=== PATIENT | male | born 1955 | race Caucasian/White ===

== ENCOUNTER → 2016-05-02 | Outpatient (CLI) | payer BC ==
[2016-05-02 14:41] LABS: HEMATOCRIT 42.1 % (42-52); MEAN CELL VOLUME 92.9 fL (80-100); MEAN CORPUSCULAR HGB CONC 34.4 g/dl (32-36); PLATELET COUNT 173 K/uL (130-400); RED BLOOD COUNT 4.53 M/uL (4.7-6.1); WHITE BLOOD COUNT 4.54 K/uL (4.8-10.8)
[2016-05-02 14:58] LABS: ALT/SGPT 57 U/L (12-78); AST/SGOT 25 U/L (15-37); BLOOD UREA NITROGEN 14 mg/dl (7-18); BUN/CREATININE RATIO 13.6 (10-20); CALCIUM 8.9 mg/dl (8.5-10.1); CARBON DIOXIDE 28 mmol/L (21-32); CHLORIDE 107 mmol/L (98-107); CHOLESTEROL 177 mg/dl (0-200); GLUCOSE 94 mg/dl (70-99); POTASSIUM 4.3 mmol/L (3.5-5.1); SODIUM 143 mmol/L (136-145)
[2016-05-02 15:00] LABS: ALB/GLOB RATIO 1.4 (0.9-2); ALKALINE PHOSPHATASE 69 U/L (45-117); CHOLESTEROL/HDL RATIO 2.4; HDL CHOLESTEROL 74 mg/dl; LDL CHOLESTEROL CALCULATED 88 mg/dl; TRIGLYCERIDES 75 mg/dl (0-150); VERY LOW DENSITY LIPOPROT CALC 15 mg/dl
[2016-05-02 15:04] LABS: ESTIMATED AVERAGE GLUCOSE 111 mg/dl; HA1C FLAG Normal (Normal)
== END | disposition home or self-care (01) ==
LOC: C.LAB1850 13:45
PROVIDERS: ATTEND Internal Medicine Interventional Cardiology
DX: E78.00 Pure hypercholesterolemia, unspecified (principal); I25.10 Atherosclerotic heart disease of native coronary artery without angina pectoris

== ENCOUNTER → 2017-05-24 | Outpatient (CLI) | payer BC ==
--- NOTE | 2017-05-24 11:18 | DIAGNOSTIC IMAGING REPORT ---
(TESTICULAR) SCROTUM-CONT HISTORY: Pain. Edema. N50.89 Swollen [id number] COMPARISON: None. FINDINGS: Right testis: Maximum dimension 5.8 cm. Normal vascular flow. Normal epididymis. Left testis: Maximum dimension 4.5 cm. Large hydrocele. Normal vascular flow to the left testis. Normal epididymis. IMPRESSION: 1. Normal testes bilaterally. 2. Large left hydrocele. The above report was generated using voice recognition software. It may contain grammatical, syntax or spelling errors. Electronically signed by: Agustin Vizcarra M.D. 05/24/2017 11:17 AM Dictated Date/Time: 05/24/2017 11:16 AM
== END | disposition home or self-care (01) ==
LOC: C.ULTR 10:21
PROVIDERS: ATTEND Physician Assistant
DX: N50.89 Other specified disorders of the male genital organs (principal); N43.3 Hydrocele, unspecified

== ENCOUNTER → 2017-06-19 | Outpatient (CLI) | payer BC ==
[2017-06-19 15:48] LABS: HEMATOCRIT 42.8 % (42-52); HEMOGLOBIN 15.3 g/dL (14.0-18.0); MEAN CELL VOLUME 92.2 fL (80-100); MEAN CORPUSCULAR HGB CONC 35.7 g/dl (32-36); PLATELET COUNT 171 K/uL (130-400); RED CELL DISTRIBUTION WIDTH CV 13.5 % (11.5-14.5); RED CELL DISTRIBUTION WIDTH SD 45.4 fL (36.4-46.3); WHITE BLOOD COUNT 5.54 K/uL (4.8-10.8)
[2017-06-19 16:09] LABS: ALBUMIN 3.8 gm/dl (3.4-5.0); ALT/SGPT 37 U/L (12-78); BLOOD UREA NITROGEN 12 mg/dl (7-18); CALCIUM 8.9 mg/dl (8.5-10.1); CARBON DIOXIDE 29 mmol/L (21-32); CHOLESTEROL 224 mg/dl (0-200); CREATININE 1.14 mg/dl (0.60-1.40); GLUCOSE 95 mg/dl (70-99); POTASSIUM 4.5 mmol/L (3.5-5.1); SODIUM 139 mmol/L (136-145)
[2017-06-19 16:31] LABS: ALKALINE PHOSPHATASE 69 U/L (45-117); AST/SGOT 19 U/L (15-37); LDL CHOLESTEROL CALCULATED 150 mg/dl; TOTAL PROTEIN 6.7 gm/dl (6.4-8.2)
== END | disposition home or self-care (01) ==
LOC: C.LAB1850 14:56
PROVIDERS: ATTEND Internal Medicine Interventional Cardiology
DX: E78.00 Pure hypercholesterolemia, unspecified (principal); I25.10 Atherosclerotic heart disease of native coronary artery without angina pectoris; R53.83 Other fatigue; R63.5 Abnormal weight gain

== ENCOUNTER → 2017-06-20 | Outpatient (CLI) | payer BC ==
--- NOTE | 2017-06-20 16:56 | DIAGNOSTIC IMAGING REPORT ---
ABD/PELVIS NO IV OR ORAL CONT CLINICAL HISTORY: 61 years-old Male presenting with SWOLLEN SCROTUM. TECHNIQUE: Multidetector CT of the abdomen and pelvis was performed without the use of intravenous contrast. IV contrast: None. A dose lowering technique was used consistent with the principles of ALARA (as low as reasonably achievable). COMPARISON: None. CT DOSE (mGy.cm): The estimated cumulative dose is 922.96 mGycm. FINDINGS: [employer] topogram: Vasectomy clips noted. Partially visualized implanted cardiac defibrillator lead. Lung bases: Minimal basilar opacities, likely atelectasis. Normal heart size. No pericardial or pleural effusion. Liver: Normal morphology. Normal density. Few well-defined hypodensities, indeterminate but likely hepatic cysts or hamartomas. Biliary: No gross biliary ductal dilatation allowing for noncontrast technique. Normal gallbladder. Pancreas: Mild parenchymal atrophy. Spleen: Normal. Adrenal glands: Normal. Kidneys and ureters: 2.1 cm upper pole left renal lesion which is indeterminate by density. An additional well-defined hypodensity noted in the kidney indeterminate likely simple cyst. Subcentimeter hyperdensity at the lower pole the left kidney (series 3 image 161), indeterminate, likely hemorrhagic or proteinaceous cyst. Suspected simple cyst also noted in the right kidney. No nephrolithiasis. No hydronephrosis. Ureters normal. Bladder: Bladder circumferentially thick-walled allowing for underdistention. Pelvic organs: Prostate enlargement likely secondary to benign prostatic hyperplasia. Bowel: Mild colonic wall thickening suggested of the sigmoid colon and rectum. No pericolonic fat stranding. Few scattered diverticula noted throughout the colon primarily in the descending colon. The appendix is normal. No bowel obstruction. Peritoneal cavity: No free fluid or intraperitoneal gas. Lymph nodes: No gross lymphadenopathy allowing for noncontrast technique. Vasculature: Atherosclerosis of the normal caliber abdominal aorta. The Abdominal wall: Bilateral hydroceles or spermatoceles, greater on the left. Mastectomy clips noted. Musculoskeletal: Degenerative changes of the spine. IMPRESSION: 1. 2.1 cm upper pole left renal lesion is indeterminate and is concerning for a solid renal neoplasm though this could represent hemorrhagic or proteinaceous cyst. A dedicated contrast-enhanced CT or MR examination of the kidneys is recommended for definitive characterization on a nonurgent basis. 2. Bilateral hydroceles or spermatoceles, greater on the left. The presence of vasectomy clips favors a spermatocele on the left. 3. Mild wall thickening of the sigmoid colon and rectum without pericolonic fat infiltration. This could be due to underdistention, circular muscle hypertrophy, or mild chronic inflammation. 4. Chronic bladder outlet obstruction secondary to prostatomegaly. The report will be called/faxed according to standard departmental protocol. Electronically signed by: Fuad Levy M.D. 06/20/2017 4:55 PM Dictated Date/Time: 06/20/2017 4:44 PM
== END | disposition home or self-care (01) ==
LOC: C.CTS 15:26
PROVIDERS: ATTEND Urology
DX: N50.89 Other specified disorders of the male genital organs (principal); N28.9 Disorder of kidney and ureter, unspecified; N40.1 Benign prostatic hyperplasia with lower urinary tract symptoms

== ENCOUNTER → 2017-06-27 | Outpatient (CLI) | payer BC ==
[~2017-06-27] MED LIST: ASPI81TA28 PO; CIPR-255 PO; COEN1CAP17 PO; METR-163 PO; MISCCHW PO; MULTTAB58 PO; NITR0.4S UT; OMEG10007 PO; OXYC7.5T66 PO; PROP10TA7 PO; TAMS0.4C38 PO; VSK5 PO
== END | disposition home or self-care (01) ==
LOC: C.LAB1850 14:24
PROVIDERS: ATTEND Nurse Practitioner Adult Health
DX: Z20.2 Contact with and (suspected) exposure to infections with a predominantly sexual mode of transmission (principal)

== ENCOUNTER 2017-07-01 16:44 | Inpatient (IN) | payer BC ==
[~2017-07-01] VITALS: Ht 177.8 cm; Wt 79.9 kg
[2017-07-01] MEDS ORDERED: ONDANSETRON INJ 2 MG/ML 2 ML VIAL IV STA (20:16)
[2017-07-01] MEDS ORDERED: SODIUM CHLORIDE 0.9% 1000ML 1,000 ML IV STA (20:16)
[2017-07-01] MEDS ORDERED: MoRPHine SULFATE 10 MG/ML CARP/VIAL IV STA (20:16)
--- NOTE | 2017-07-01 20:17 | EMERGENCY ROOM VISIT NOTE ---
History Report prepared by Bryan: Bret Werner Under the Supervision of: Dr. Johan Banks M.D. First contact with patient: 20:05 Chief Complaint: TESTICULAR PAIN Stated Complaint: SWOLLEN TESTICLE, PAIN, CONSTIPATION, DARK URINE Nursing Triage Summary: Pt reports swollen testicle for several months, worsening recently. Last 2-3 days, urine has been dark. Pain in testicle and left flank. Pt was seen at urologist last week and placed on Cipro and Flagyl. History of Present Illness The patient is a 61 year old male who presents to the Emergency Room with complaints of worsening left testicular swelling that began 4 months ago with pain rated as 8/10. He states that for the past 2-3 days, his urine has been dark and that he has had increased difficulty urinating. He notes that he felt a twinge of pain in his prostate last night and also complains of left flank pain. Per family, the patient has had decreased appetite, blurry vision, ringing in his ears, and has been constipated. He states that he is uncircumcised and noted that he noticed his penis was shrinking about 4 months ago. 2 months ago he had an ultrasound which revealed a hydrocele on his left testicle. The patient was seen by Dr. Thompson who ordered a CT scan. He was referred to a PCP last week who placed him on Cipro and Flagyl. He has been taking Oxycodone to manage his pain. He denies fevers and SOB. Source of History: patient, family Onset: 4 months ago Position: other (groin) Symptom Intensity: pain rated as 8/10 Timing: worsening Modifying Factors (Relieving): narcotics Associated Symptoms: + urinary symptoms, No fevers, No SOB Note: Patient complains of left flank pain, blurry vision, ringing in his ears, and constipation. Review of Systems See HPI for pertinent positives & negatives. A total of 10 systems reviewed and were otherwise negative. Past Medical & Surgical Medical Problems: (1) Cellulitis, scrotum (2) Heart attack (3) Heart disease (4) Hydrocele in adult Surgical Problems: (1) Hx of vasectomy Family History FHx: cancer FHx: heart disease Social History Smoking Status: Current Every Day Smoker Alcohol Use: none Drug Use: none Marital Status: Occupation Status: unemployed Current/Historical Medications Scheduled Aspirin (Aspirin Ec), 81 MG PO DAILY Ciprofloxacin Hcl (Cipro), 500 MG PO Q12 Coenzyme Q10 (Ubidecarenone) (Co Q 10), 100 MG PO DAILY Fish Oil (Hornitos-3), 2,000 MG PO DAILY Metronidazole (Flagyl), 500 MG PO TID Multiple Vitamin (Multivitamin), 1 TAB PO DAILY Pindolol (Visken), 2.5 MG PO BID Probiotic Product (Acidophilus), 1 TAB PO DAILY Tamsulosin Hcl (Flomax), 0.4 MG PO DAILY Scheduled PRN Nitroglycerin (Nitrostat), 0.4 MG UT UD PRN for Chest Pain Oxycodone/Acetaminophen 7.5MG/325MG (Oxycodone/Acetaminophen 7.5MG/325MG), 1 TAB PO Q4H PRN for Pain Propranolol (Inderal), 10 MG PO UD PRN for Tachycardia Allergies Coded Allergies: Morphine (Verified Adverse Reaction, Intermediate, DELIRIUM, 07/01/17) Physical Exam Vital Signs Date Time Temp Pulse Resp B/P (MAP) Pulse Ox O2 Delivery O2 Flow Rate FiO2 07/02/17 01:05 98 20 94 Room Air 07/02/17 01:00 112/58 07/02/17 00:05 93 24 96 Room Air 07/02/17 00:02 89 07/02/17 00:00 136/86 07/01/17 23:10 93 22 95 Room Air 07/01/17 23:00 119/78 07/01/17 22:10 98 21 96 Room Air 07/01/17 22:05 92 19 130/74 97 Room Air 07/01/17 21:05 82 16 97 Room Air 07/01/17 21:00 104/66 07/01/17 20:44 82 07/01/17 20:32 122/80 Room Air 07/01/17 20:00 93 18 106/72 97 Room Air 07/01/17 16:47 36.8 88 16 104/43 96 Room Air Physical Exam GENERAL: Patient is well appearing and in no acute distress. EYES: No scleral icterus, unremarkable pupils. ENT: Mucous membranes moist, no nasal congestion. NECK: No masses appreciated, no meningismus, trachea is midline. RESPIRATORY: No dyspnea. Clear to auscultation and equal bilaterally. No wheeze , no rhonchi. CARDIOVASCULAR: Regular rate and rhythm. No murmurs, rubs, gallops appreciated. GASTROINTESTINAL: Vague left lower quadrant tenderness to palpation. Abdomen soft, no peritonitis. Bowel sounds positive. No masses appreciated. BACK: No midline tenderness, no CVA tenderness EXTREMITIES: Normal motion all extremities, no cyanosis, no edema. NEUROLOGIC: Alert and oriented, no acute motor or sensory deficits, no focal weakness, cranial nerves grossly intact. SKIN: No rash, no jaundice, no diaphoresis. PELVIS: Swollen, edematous, and very tender left scrotum. Mild erythema over base of scrotum but not extending to abdomen or perineum. Medical Decision & Procedures ER Provider Diagnostic Interpretation: Radiology results and stated below per my review and radiologist interpretation: CT SCAN OF THE ABDOMEN AND PELVIS WITH IV CONTRAST CLINICAL HISTORY: Constipation. Scrotal edema. Pain. COMPARISON STUDY: Abdominal CT dated 06/20/2017. TECHNIQUE: Following the IV administration of 119 cc of Optiray 320, CT scan of the abdomen and pelvis is performed from the lung bases to the proximal femora. Images are reviewed in the axial, sagittal, and coronal planes. IV contrast was administered without complication. A dose lowering technique was utilized adhering to the principles of ALARA. CT DOSE: 547.27 mGy.cm FINDINGS: Lung bases: The heart is normal in size and without pericardial effusion. Pacemaker leads are noted. The lung bases are clear noting bibasilar scarring/atelectasis. There is a small hiatal hernia. Liver: The contrast-enhanced liver is normal in size, contour, and attenuation. There is no intrahepatic biliary ductal dilatation. The hepatic veins and portal veins are patent. Scattered subcentimeter hepatic hypodensities likely represent tiny cysts but are too small for definitive characterization. Gallbladder: Unremarkable. Spleen: Normal in size and attenuation. Pancreas: Unremarkable. Adrenal glands: Unremarkable. Kidneys: The contrast enhanced kidneys are normal in size and without hydronephrosis. The kidneys enhance symmetrically. A 2.0 cm lesion arising from the upper pole of left kidney likely represents a minimally complex cyst. There is no abnormal enhancement when correlated with the 06/20/2017 unenhanced examination. Left renal cysts measure up to 2.8 cm. Additional subcentimeter cortical hypodensities are seen in both kidneys. These also likely represent cysts but are too small for definitive characterization. Abdominal vasculature: The abdominal aorta is normal in course and caliber noting moderate to advanced atherosclerotic calcification. Bowel: There is moderate to severe constipation. No bowel obstruction is identified. The appendix is well-visualized and normal. Peritoneum: There is no intraperitoneal free air or abdominal ascites. There is a small fat-containing umbilical hernia. Lymphadenopathy: None. Pelvic viscera: The bladder, prostate, and seminal vesicles are normal as visualized. Surgical clips are noted along the spermatic cord bilaterally. There are bilateral hydroceles, left larger than right. Scrotal edema is suggested. Skeletal structures: No lytic or blastic lesions are seen. IMPRESSION: 1. There are no acute infectious or inflammatory findings in the abdomen or pelvis. 2. Moderate to severe constipation. No bowel obstruction is identified. 3. There are bilateral hydroceles, left larger than right with overlying scrotal edema. These are similar in appearance to the 06/20/2017 examination. Clinical correlation will be required. Consider follow-up with urology. 4. A 2.0 cm exophytic lesion arising from the upper pole of the left kidney likely represents a minimally complex cyst. There is no abnormal enhancement identified when correlated with the prior unenhanced examination. A six-month precautionary renal ultrasound is recommended in follow-up. 5. Additional findings as above. Electronically signed by: Mukund Key M.D. 07/01/2017 10:10 PM Dictated Date/Time: 07/01/2017 10:00 PM Laboratory Results 07/01/17 20:30 Red Blood Count 4.57, Mean Corpuscular Volume 91.7, Mean Corpuscular Hemoglobin 32.8, Mean Corpuscular Hemoglobin Concent 35.8, Mean Platelet Volume 10.0, Neutrophils (%) (Auto) 64.1, Lymphocytes (%) (Auto) 20.8, Monocytes (%) (Auto) 13.0, Eosinophils (%) (Auto) 1.5, Basophils (%) (Auto) 0.3, Neutrophils # (Auto ) 5.68, Lymphocytes # (Auto) 1.84, Monocytes # (Auto) 1.15, Eosinophils # (Auto ) 0.13, Basophils # (Auto) 0.03 07/01/17 20:30 Test 07/01/17 20:00 07/01/17 20:30 07/01/17 20:44 07/01/17 20:48 Urine Color ORANGE Urine Appearance CLEAR (CLEAR) Urine pH 5.0 (4.5-7.5) Urine Specific Kam[place] 1.022 (1.000-1.030) Urine Protein NEG (NEG) Urine Glucose (UA) NEG (NEG) Urine Ketones 1+ (NEG) Urine Occult Blood NEG (NEG) Urine Nitrite POS (NEG) Urine Bilirubin NEG (NEG) Urine Urobilinogen NEG (NEG) Urine Leukocyte Esterase SMALL (NEG) Urine WBC (Auto) 1-5 /hpf (0-5) Urine RBC (Auto) 0-4 /hpf (0-4) Urine Hyaline Casts (Auto) 1-5 /lpf (0-5) Urine Epithelial Cells (Auto) 0-5 /lpf (0-5) Urine Bacteria (Auto) NEG (NEG) White Blood Count 8.86 K/uL (4.8-10.8) Red Blood Count 4.57 M/uL (4.7-6.1) Hemoglobin 15.0 g/dL (14.0-18.0) Hematocrit 41.9 % (42-52) Mean Corpuscular Volume 91.7 fL (80-100) Mean Corpuscular Hemoglobin 32.8 pg (25-34) Mean Corpuscular Hemoglobin Concent 35.8 g/dl (32-36) Platelet Count 181 K/uL (130-400) Mean Platelet Volume 10.0 fL (7.4-10.4) Neutrophils (%) (Auto) 64.1 % Lymphocytes (%) (Auto) 20.8 % Monocytes (%) (Auto) 13.0 % Eosinophils (%) (Auto) 1.5 % Basophils (%) (Auto) 0.3 % Neutrophils # (Auto) 5.68 K/uL (1.4-6.5) Lymphocytes # (Auto) 1.84 K/uL (1.2-3.4) Monocytes # (Auto) 1.15 K/uL (0.11-0.59) Eosinophils # (Auto) 0.13 K/uL (0-0.5) Basophils # (Auto) 0.03 K/uL (0-0.2) RDW Standard Deviation 44.1 fL (36.4-46.3) RDW Coefficient of Variation 13.3 % (11.5-14.5) Immature Granulocyte % (Auto) 0.3 % Immature Granulocyte # (Auto) 0.03 K/uL (0.00-0.02) Erythrocyte Sedimentation Rate 19 mm/hr (0-14) BUN/Creatinine Ratio 14.2 (10-20) Calcium Level 9.2 mg/dl (8.5-10.1) C-Reactive Protein 4.16 mg/dl (0-0.29) Bedside Lactic Acid Venous 1.00 mmol/L (0.90-1.70) Bedside Hemoglobin 13.9 g/dl (14.0-18.0) Bedside Hematocrit 41 % (42-52) Bedside Sodium 136 mEq/L (135-144) Bedside Potassium 4.1 mEq/L (3.3-5.0) Bedside Chloride 99 mEq/L (101-112) Bedside Total CO2 26 mEq/l (24-31) Anion Gap 16.0 mmol/L (16-25) Bedside Blood Urea Nitrogen 17 mg/dl (7-18) Bedside Creatinine 1.1 mg/dl (0.6-1.3) Bedside Glucose (other) 106 mg/dl (70-99) Bedside Ionized Calcium (Merlene) 1.11 mmol/l (1.12-1.32) Laboratory results as reviewed by me. Medications Administered Medications (Trade) Dose Ordered Sig/Renita Route Start Time Stop Time Status Last Admin Dose Admin Sodium Chloride 1,000 ml @ 999 mls/hr Q1H1M STAT IV 07/01/17 20:16 07/01/17 21:16 DC 07/01/17 20:59 999 MLS/HR Doxycycline Hyclate 100 mg/ Dextrose 110 ml @ 50 mls/hr NOW STAT IV 07/01/17 22:42 07/02/17 00:53 DC 07/02/17 00:02 50 MLS/HR Ceftriaxone Sodium (Rocephin Inj) 1 gm NOW STAT IV 07/01/17 22:42 07/01/17 22:44 DC 07/01/17 22:53 1 GM ED Course 2004: The patient was evaluated in room A11B. A complete history and physical exam was performed. 2215: I checked on the patient and he is resting comfortably. 2236: Discussed the patient's case with Dr. Amato. The patient will be evaluated for further treatment and disposition. 2240: Upon reevaluation, the patient is resting. Discussed results and treatment plan with the patient. He verbalized understanding and agreement with the treatment plan. The patient will be evaluated for further management. Medical Decision Differential: Torsion, Mass, Fornier/Infection, Abscess, Hernia, Hydrocele, Epididymitis, Trauma, Renal Colic, Intraabdominal Process, amongst other pathologies entertained. 61 yr old male arrives for evaluation of left scrotal pain/swelling. Sounds like dealing with enlarged hydrocele over last few weeks/months but last few days clearly this has worsened despite ABX therapy (put on in case of diverticulitis). He has a massively swollen left scrotum with severe pain on moving but when staying still minimal discomfort thus I do not feel this represents torsion, he even declined pain medications. He has no wbc elevation but CRP is bumped consistent with inflammatory process. No fever, tachy, nor hypo to suggest sepsis. With unclear mass left kidney felt imaging reasonable especially given need to evaluate swelling left scrotum better which fortuantely mass looks benign on kidney, though edema scrotum noted without free air nor clear abscess. Discussed with uro and given failure outpatient abx , worsening symptoms will plan bring in for further treatment/evaluation. Given IV Aries/Doxy as already has been on cipro/flagyl. Patient a bit forgetful in discussions though daughter notes this is normal as he had previous anoxic brain injury. Medication Reconcilliation Current Medication List: was personally reviewed by me Blood Pressure Screening Patient's blood pressure: Low blood pressure Blood pressure disposition: Did not require urgent referral Consults Time Called: [phone] Consulting Physician: Dr. Amato Returned Call: [phone] Discussed the patient's case. The patient will be evaluated for further treatment and disposition. Impression Primary Impression: Scrotal infection Additional Impression: Failure of outpatient treatment Scribe Attestation The scribe's documentation has been prepared under my direction and personally reviewed by me in its entirety. I confirm that the note above accurately reflects all work, treatment, procedures, and medical decision making performed by me. Departure Information Dispostion Being Evaluated By Hospitalist Referrals Roma Tran CRNP (PCP) Patient Instructions My [facility] Problem Qualifiers
[2017-07-01 20:51] LABS: BASO % 0.3 %; BASO ABS # 0.03 K/uL (0-0.2); EOS % 1.5 %; EOS ABS # 0.13 K/uL (0-0.5); HEMATOCRIT 41.9 % (42-52); IG# 0.03 K/uL (0.00-0.02); LYMPH % 20.8 %; LYMPH ABS # 1.84 K/uL (1.2-3.4); MEAN CELL VOLUME 91.7 fL (80-100); MEAN CORPUSCULAR HEMOGLOBIN 32.8 pg (25-34); MEAN CORPUSCULAR HGB CONC 35.8 g/dl (32-36); MONO ABS # 1.15 K/uL (0.11-0.59); NEUT % 64.1 %; NEUT ABS # 5.68 K/uL (1.4-6.5); PLATELET COUNT 181 K/uL (130-400); RED CELL DISTRIBUTION WIDTH CV 13.3 % (11.5-14.5); RED CELL DISTRIBUTION WIDTH SD 44.1 fL (36.4-46.3); WHITE BLOOD COUNT 8.86 K/uL (4.8-10.8)
[2017-07-01 21:03] LABS: ISTAT CREATININE 1.1 mg/dl (0.6-1.3); ISTAT IONIZED CALCIUM 1.11 mmol/l (1.12-1.32); ISTAT POTASSIUM 4.1 mEq/L (3.3-5.0)
[2017-07-01 21:11] LABS: CALCIUM 9.2 mg/dl (8.5-10.1); CREATININE 1.13 mg/dl (0.60-1.40)
[2017-07-01] MEDS ORDERED: PROP10TA7 PO (21:53)
[2017-07-01] MEDS ORDERED: OXYC7.5T66 PO (21:53)
[2017-07-01] MEDS ORDERED: NITR0.4S UT (21:53)
[2017-07-01] MEDS ORDERED: CIPR-255 PO (21:53)
[2017-07-01] MEDS ORDERED: MULTTAB58 PO (21:53)
[2017-07-01] MEDS ORDERED: MISCCHW PO (21:53)
[2017-07-01] MEDS ORDERED: METR-163 PO (21:53)
[2017-07-01] MEDS ORDERED: COEN1CAP17 PO (21:53)
[2017-07-01] MEDS ORDERED: OMEG10007 PO (21:53)
[2017-07-01] MEDS ORDERED: TAMS0.4C38 PO (21:53)
[2017-07-01] MEDS ORDERED: ASPI81TA28 PO (21:53)
[2017-07-01] MEDS ORDERED: OPTIRAY 320 IV PRN (22:00)
[2017-07-01] MEDS ORDERED: VSK5 PO (22:11)
--- NOTE | 2017-07-01 22:11 | DIAGNOSTIC IMAGING REPORT ---
CT SCAN OF THE ABDOMEN AND PELVIS WITH IV CONTRAST CLINICAL HISTORY: Constipation. Scrotal edema. Pain. COMPARISON STUDY: Abdominal CT dated 06/20/2017. TECHNIQUE: Following the IV administration of 119 cc of Optiray 320, CT scan of the abdomen and pelvis is performed from the lung bases to the proximal femora. Images are reviewed in the axial, sagittal, and coronal planes. IV contrast was administered without complication. A dose lowering technique was utilized adhering to the principles of ALARA. CT DOSE: 547.27 mGy.cm FINDINGS: Lung bases: The heart is normal in size and without pericardial effusion. Pacemaker leads are noted. The lung bases are clear noting bibasilar scarring/atelectasis. There is a small hiatal hernia. Liver: The contrast-enhanced liver is normal in size, contour, and attenuation. There is no intrahepatic biliary ductal dilatation. The hepatic veins and portal veins are patent. Scattered subcentimeter hepatic hypodensities likely represent tiny cysts but are too small for definitive characterization. Gallbladder: Unremarkable. Spleen: Normal in size and attenuation. Pancreas: Unremarkable. Adrenal glands: Unremarkable. Kidneys: The contrast enhanced kidneys are normal in size and without hydronephrosis. The kidneys enhance symmetrically. A 2.0 cm lesion arising from the upper pole of left kidney likely represents a minimally complex cyst. There is no abnormal enhancement when correlated with the 06/20/2017 unenhanced examination. Left renal cysts measure up to 2.8 cm. Additional subcentimeter cortical hypodensities are seen in both kidneys. These also likely represent cysts but are too small for definitive characterization. Abdominal vasculature: The abdominal aorta is normal in course and caliber noting moderate to advanced atherosclerotic calcification. Bowel: There is moderate to severe constipation. No bowel obstruction is identified. The appendix is well-visualized and normal. Peritoneum: There is no intraperitoneal free air or abdominal ascites. There is a small fat-containing umbilical hernia. Lymphadenopathy: None. Pelvic viscera: The bladder, prostate, and seminal vesicles are normal as visualized. Surgical clips are noted along the spermatic cord bilaterally. There are bilateral hydroceles, left larger than right. Scrotal edema is suggested. Skeletal structures: No lytic or blastic lesions are seen. IMPRESSION: 1. There are no acute infectious or inflammatory findings in the abdomen or pelvis. 2. Moderate to severe constipation. No bowel obstruction is identified. 3. There are bilateral hydroceles, left larger than right with overlying scrotal edema. These are similar in appearance to the 06/20/2017 examination. Clinical correlation will be required. Consider follow-up with urology. 4. A 2.0 cm exophytic lesion arising from the upper pole of the left kidney likely represents a minimally complex cyst. There is no abnormal enhancement identified when correlated with the prior unenhanced examination. A six-month precautionary renal ultrasound is recommended in follow-up. 5. Additional findings as above. Electronically signed by: Mukund Key M.D. 07/01/2017 10:10 PM Dictated Date/Time: 07/01/2017 10:00 PM
[2017-07-01] MEDS ORDERED: DOXYCYCLINE IV 100 MG in DEXTROSE 5% 100ML 100 ML IV STA (22:42)
[2017-07-01] MEDS ORDERED: CEFTRIAXONE SOD INJ 1 GM ADDVIAL IV STA (22:42)
[2017-07-02] MEDS ORDERED: HYDROmorphone INJ 0.5 MG/0.5 ML SYR IV PRN (01:00)
[2017-07-02] MEDS ORDERED: VANCOMYCIN CONSULT ACTIVE PRN (01:00)
[2017-07-02] MEDS ORDERED: ZOLPIDEM TARTRATE 5 MG TAB PO PRN (01:15)
[2017-07-02] MEDS ORDERED: ACETAMINOPHEN 325 MG TAB PO PRN (01:15)
[2017-07-02] MEDS ORDERED: MAGNESIUM HYDROXIDE SUSP 30 ML UDC PO PRN (01:15)
[2017-07-02] MEDS ORDERED: ALUMINUM/MAGNESIUM/SIMETH (MAALOX MAX) 30 ML UDC PO PRN (01:15)
[2017-07-02] MEDS ORDERED: ONDANSETRON INJ 2 MG/ML 2 ML VIAL IV PRN (01:15)
--- NOTE | 2017-07-02 01:33 | History and Physical ---
History & Physical Date & Time of Service: Jul 02, 2017 at 01:18 Chief Complaint: Swollen Testicle, Pain, Constipation, Dark Urine Primary Care Physician: Roma Tran CRNP History of Present Illness Source: patient 61 y/o M Hx HTN, HPL, BPH, CAD. The pt developed swelling in his L testicle beginning 4 months prior and was subsequently diagnosed with a hydrocele on US. Over the past week he has experienced increasing swelling, pain and dysuria. He is having difficulty mobilizing due to the swelling. He denies fevers or rigors. The pt was placed on Cipro/Flagyl one week prior by his PCP due to concern for hydrocele infection. Past Medical/Surgical History 1) Hydrocele, scrotal 2) HTN 3) HPL 4) CAD - [place] 2007 5) Smoker 6) BPH Family History FHx: cancer FHx: heart disease Social History Smokes 1/2 pack daily - does not drink alcohol Smoking Status: Current Every Day Smoker Drug Use: none Marital Status: Occupational Status: unemployed Allergies Coded Allergies: Morphine (Verified Adverse Reaction, Intermediate, DELIRIUM, 07/01/17) Home Medications Scheduled Aspirin (Aspirin Ec), 81 MG PO DAILY Ciprofloxacin Hcl (Cipro), 500 MG PO Q12 Coenzyme Q10 (Ubidecarenone) (Co Q 10), 100 MG PO DAILY Fish Oil ([place]-3), 2,000 MG PO DAILY Metronidazole (Flagyl), 500 MG PO TID Multiple Vitamin (Multivitamin), 1 TAB PO DAILY Pindolol (Visken), 2.5 MG PO BID Probiotic Product (Acidophilus), 1 TAB PO DAILY Tamsulosin Hcl (Flomax), 0.4 MG PO DAILY Scheduled PRN Nitroglycerin (Nitrostat), 0.4 MG UT UD PRN for Chest Pain Oxycodone/Acetaminophen 7.5MG/325MG (Oxycodone/Acetaminophen 7.5MG/325MG), 1 TAB PO Q4H PRN for Pain Propranolol (Inderal), 10 MG PO UD PRN for Tachycardia Review of Systems Constitutional: No fever, No chills, No sweats Eyes: No worsening of vision ENT: No hearing loss, No nasal symptoms Respiratory: No cough, No sputum, No wheezing Cardiovascular: No chest pain Abdomen: No pain, No nausea, No vomiting Musculoskeletal: No joint pain Genitourinary - Male: + dysuria, + problem reported (Scrotal pain , L>R), No hematuria Neurologic: No memory loss, No paralysis Psychiatric: No depression symptoms Endocrine: No fatigue Hematologic / Lymphatic: No abnormal bleeding/bruising Integumentary: + rash (Scrotal erythema) Allergic / Immunologic: No environmental allergies Physical Exam Vital Signs Date Time Temp Pulse Resp B/P (MAP) Pulse Ox O2 Delivery O2 Flow Rate FiO2 07/02/17 00:02 89 07/02/17 00:00 136/86 07/01/17 23:10 93 22 95 Room Air 07/01/17 23:00 119/78 07/01/17 22:10 98 21 96 Room Air 07/01/17 22:05 92 19 130/74 97 Room Air 07/01/17 21:05 82 16 97 Room Air 07/01/17 21:00 104/66 07/01/17 20:44 82 07/01/17 20:32 122/80 Room Air 07/01/17 20:00 93 18 106/72 97 Room Air 07/01/17 16:47 36.8 88 16 104/43 96 Room Air General Appearance: + pertinent finding (Bearded middle aged male in no distress) Head: normocephalic, atraumatic Eyes: normal inspection ENT: normal ENT inspection, pharynx normal Neck: supple, thyroid normal Respiratory/Chest: chest non-tender, lungs clear, normal breath sounds Cardiovascular: regular rate, rhythm, no edema, no gallop Abdomen/GI: normal bowel sounds, non tender, soft Genitourinary - Male: + pertinent finding (Sweling and erythema of scrotum) Back: normal inspection Diagnostics Laboratory Results Results Past 24 Hours Test 07/01/17 20:00 07/01/17 20:30 07/01/17 20:44 07/01/17 20:48 Range/Units Urine Color ORANGE Urine Appearance CLEAR CLEAR Urine pH 5.0 4.5-7.5 Urine Specific [place] 1.022 1.000-1.030 Urine Protein NEG NEG Urine Glucose (UA) NEG NEG Urine Ketones 1+ NEG Urine Occult Blood NEG NEG Urine Nitrite POS NEG Urine Bilirubin NEG NEG Urine Urobilinogen NEG NEG Urine Leukocyte Esterase SMALL NEG Urine WBC (Auto) 1-5 0-5 /hpf Urine RBC (Auto) 0-4 0-4 /hpf Urine Hyaline Casts (Auto) 1-5 0-5 /lpf Urine Epithelial Cells (Auto) 0-5 0-5 /lpf Urine Bacteria (Auto) NEG NEG White Blood Count 8.86 4.8-10.8 K/uL Red Blood Count 4.57 4.7-6.1 M/uL Hemoglobin 15.0 14.0-18.0 g/dL Hematocrit 41.9 42-52 % Mean Corpuscular Volume 91.7 80-100 fL Mean Corpuscular Hemoglobin 32.8 25-34 pg Mean Corpuscular Hemoglobin Concent 35.8 32-36 g/dl Platelet Count 181 130-400 K/uL Mean Platelet Volume 10.0 7.4-10.4 fL Neutrophils (%) (Auto) 64.1 % Lymphocytes (%) (Auto) 20.8 % Monocytes (%) (Auto) 13.0 % Eosinophils (%) (Auto) 1.5 % Basophils (%) (Auto) 0.3 % Neutrophils # (Auto) 5.68 1.4-6.5 K/uL Lymphocytes # (Auto) 1.84 1.2-3.4 K/uL Monocytes # (Auto) 1.15 0.11-0.59 K/uL Eosinophils # (Auto) 0.13 0-0.5 K/uL Basophils # (Auto) 0.03 0-0.2 K/uL RDW Standard Deviation 44.1 36.4-46.3 fL RDW Coefficient of Variation 13.3 11.5-14.5 % Immature Granulocyte % (Auto) 0.3 % Immature Granulocyte # (Auto) 0.03 0.00-0.02 K/uL Erythrocyte Sedimentation Rate 19 0-14 mm/hr Sodium Level 135 136-145 mmol/L Potassium Level 4.0 3.5-5.1 mmol/L Chloride Level 100 98-107 mmol/L Carbon Dioxide Level 26 21-32 mmol/L Anion Gap 9.0 16.0 16-25 mmol/L Blood Urea Nitrogen 16 7-18 mg/dl Creatinine 1.13 0.60-1.40 mg/dl Est Creatinine Clear Calc Drug Dose 69.1 ml/min Estimated GFR () 79.7 Estimated GFR (Non- 68.8 BUN/Creatinine Ratio 14.2 10-20 Random Glucose 105 70-99 mg/dl Calcium Level 9.2 8.5-10.1 mg/dl C-Reactive Protein 4.16 0-0.29 mg/dl Bedside Lactic Acid Venous 1.00 0.90-1.70 mmol/L Bedside Hemoglobin 13.9 14.0-18.0 g/dl Bedside Hematocrit 41 42-52 % Bedside Sodium 136 135-144 mEq/L Bedside Potassium 4.1 3.3-5.0 mEq/L Bedside Chloride 99 101-112 mEq/L Bedside Total CO2 26 24-31 mEq/l Bedside Blood Urea Nitrogen 17 7-18 mg/dl Bedside Creatinine 1.1 0.6-1.3 mg/dl Bedside Glucose (other) 106 70-99 mg/dl Bedside Ionized Calcium (Merlene) 1.11 1.12-1.32 mmol/l Microbiology Results 07/01/17 Blood Culture, Received Pending 07/01/17 Blood Culture, Received Pending Diagnostic Radiology CT abdomen: IMPRESSION: 1. There are no acute infectious or inflammatory findings in the abdomen or pelvis. 2. Moderate to severe constipation. No bowel obstruction is identified. 3. There are bilateral hydroceles, left larger than right with overlying scrotal edema. These are similar in appearance to the 06/20/2017 examination. Clinical correlation will be required. Consider follow-up with urology. 4. A 2.0 cm exophytic lesion arising from the upper pole of the left kidney likely represents a minimally complex cyst. There is no abnormal enhancement identified when correlated with the prior unenhanced examination. A six-month precautionary renal ultrasound is recommended in follow-up. Impression Assessment and Plan 61 y/o M Hx HTN, HPL, BPH, CAD. The pt developed swelling in his L testicle beginning 4 months prior and was subsequently diagnosed with a hydrocele on US. Over the past week he has experienced increasing swelling, pain and dysuria. He is having difficulty mobilizing due to the swelling. He denies fevers or rigors. The pt was placed on Cipro/Flagyl one week prior by his PCP due to concern for hydrocele infection. 1) Hydrocele - scrotal pain with limited mobility - possible hydrocele infection and cellulitis. Placed on Ceftriaxone and Vanc. To be evaluated by urology AM. It is likely that the dysuria is a result of compression of the urethra by the hydrocele. 2) HTN - cont Pindolol 3) HPL - treats with fish oil normally 4) CAD - no evidence of ACS - cont ASA, B savannah 5) BPH - cont Flomax Full code - SCDs pending urology eval. Total time for this admit including reviw of labs, meds, imaging, records - discussion with pt and ER attending - 33 min Resuscitation Status VTE Prophylaxis Will order VTE Prophylaxis: Yes
[2017-07-02 01:50] VITALS: BP 114/70; PULSE 92; TEMP 37.3; O2SAT 96; Ht 177.8 cm; Wt 79.9 kg
[2017-07-02] MEDS ORDERED: POLYETHYLENE (MIRALAX) 17 GM PACK PO PRN (02:15)
[2017-07-02] MEDS ORDERED: VANCOMYCIN IV 2,000 MG in SODIUM CHLORIDE 0.9% 500ML 500 ML IV SCH (02:30)
[2017-07-02] MEDS ORDERED: D5NSS + 20MEQ KCL 1,000 ML IV SCH (02:30)
[2017-07-02] MEDS ORDERED: TAMSULOSIN HCL 0.4 MG CAP PO SCH ×2 (02:45→09:00)
[2017-07-02 06:28] LABS: CREATININE 1.06 mg/dl (0.60-1.40)
[2017-07-02 07:19] VITALS: BP 103/60; PULSE 94; TEMP 37.1; O2SAT 94
[2017-07-02] MEDS ORDERED: PROBIOTIC PRODUCT PO SCH (09:00)
[2017-07-02] MEDS: ASPIRIN 81 MG ECTAB PO SCH (09:26)
[2017-07-02] MEDS: VANCOMYCIN IV 1,250 MG in SODIUM CHLORIDE 0.9% 250ML 250 ML IV SCH (13:47)
--- NOTE | 2017-07-02 14:13 | Urology Consultation ---
History General Date of Service: Jul 02, 2017. Primary Care Physician: Roma Tran CRNP Pt seen a urologist before?: Yes If yes, why?: voiding dysfunction, testicular pain History of Present Illness 61y/o male w/ 1 month of progressive left scrotal swelling and tenderness - history is more extensive than that - 20+ years of significant voiding dysfunction - intermittently on tamsulosin (most recently - every other day) - severe intermittency, weak stream, sensation of incomplete emptying - starting one month ago, he simultaneously noted swelling of the scrotum and increasing urinary difficulty - this progressed to andrew pain of the left groin and testicle - and the suprapubic region - swelling increased more, tenderness increased more - no dysuria, no hematuria - no fevers - treated with cipro as an outpt (believes his symptoms got worse with this) - US: (early May) - large left hydrocele - CT (x2) - large hydrocele, no evidence of prostate abscess Laboratory Labs were reviewed and are within normal limits unless listed below. Labs are available in the chart and at [facility] Problem List Medical Problems: (1) Failure of outpatient treatment Status: Acute (2) Scrotal infection Status: Acute Past History BPH, coronary artery disease, hypertension, myocardial infarction Pt had a problem w anesthesia?: No Past Surgical History: cardiac catheterization Family History FHx: cancer FHx: heart disease Social History Hx Tobacco Use In Past Year?: No Marital status: Occupation status: unemployed Allergies Coded Allergies: Morphine (Verified Adverse Reaction, Intermediate, DELIRIUM, 07/01/17) Medications Home Medications: Home Meds and Scripts Medications Dose Route/Sig Max Daily Dose Days Date Category Dose Instructions Visken (Pindolol) 5 Mg Tab 2.5 Mg PO BID 07/01/17 Reported Cipro (Ciprofloxacin Hcl) 500 Mg Tab 500 Mg PO Q12 14 07/01/17 Reported PRESCRIBED 06/26/2017, TAKE DIRECTED UNTIL GONE Flagyl (Metronidazole) 500 Mg Tab 500 Mg PO TID 07/01/17 Reported PRESCRIBED 06/26/2017, TAKE DIRECTED UNTIL GONE Oxycodone/Acetaminophen 7.5MG/325MG 1 Tab Tab 1 Tab PO Q4H PRN 07/01/17 Reported Aspirin Ec (Aspirin) 81 Mg Tab 81 Mg PO DAILY 07/01/17 Reported Flomax (Tamsulosin Hcl) 0.4 Mg Cap 0.4 Mg PO DAILY 07/01/17 Reported Nitrostat (Nitroglycerin) 0.4 Mg Sub 0.4 Mg UT UD PRN 07/01/[address] ONE TABLET UNDER THE TONGUE EVERY 5 MINUTES FOR UP TO 3 DOSES OVER 15 MINUTES IF NEEDED FOR CHEST PAIN Inderal (Propranolol HCl) 10 Mg Tab 10 Mg PO UD PRN 07/01/17 Reported Acidophilus (Probiotic Product) 1 Chw Chw 1 Tab PO DAILY 07/01/17 Reported Multivitamin (Multiple Vitamin) 1 Tab Tab 1 Tab PO DAILY 07/01/17 Reported Co Q 10 (Coenzyme Q10 (Ubidecarenone)) 100 Mg Cap 100 Mg PO DAILY 07/01/17 Reported [place]-3 (Fish Oil) 1 Ea Cap 2,000 Mg PO DAILY 07/01/17 Reported Inpatient Medications: Current Inpatient Medications Medications (Trade) Dose Ordered Sig/Renita Route Start Time Stop Time Status Last Admin Dose Admin Ioversol (Optiray 320) 119 ml UD PRN IV 07/01/17 22:00 07/05/17 21:59 Miscellaneous Information (Consult) 1 ea UD PRN N/A 07/02/17 01:00 08/01/17 00:59 Ceftriaxone Sodium 1 gm/ Dextrose 50 ml @ 100 mls/hr Q24H IV 07/02/17 22:00 07/12/17 21:59 Hydromorphone HCl (Dilaudid Inj) 0.5 mg Q3H PRN IV 07/02/17 01:00 07/16/17 00:59 Aspirin (Ecotrin Tab) 81 mg DAILY PO 07/02/17 09:00 08/01/17 08:59 07/02/17 09:26 81 MG Miscellaneous Information (Order Awaiting Action) 1 ea QS N/A 07/02/17 02:30 08/01/17 02:29 Acetaminophen (Tylenol Tab) 650 mg Q4H PRN PO 07/02/17 01:15 08/01/17 01:14 Al Hydrox/Mg Hydrox/Simethicone (Maalox Max Susp) 15 ml Q4H PRN PO 07/02/17 01:15 08/01/17 01:14 Magnesium Hydroxide (Milk Of Magnesia Susp) 30 ml Q6H PRN PO 07/02/17 01:15 08/01/17 01:14 Polyethylene (Miralax Powder Packet) 17 gm DAILY PRN PO 07/02/17 02:15 08/01/17 02:14 Zolpidem Tartrate (Ambien Tab) 5 mg HSZ PRN PO 07/02/17 01:15 08/01/17 01:14 Ondansetron HCl (Zofran Inj) 4 mg Q6H PRN IV 07/02/17 01:15 08/01/17 01:14 Tamsulosin HCl (Flomax Cap) 0.4 mg HS PO 07/02/17 02:45 08/01/17 02:44 07/02/17 02:46 0.4 MG Vancomycin HCl 1250 mg/Sodium Chloride 275 ml @ 125 mls/hr Q12H IV 07/02/17 14:00 07/12/17 13:59 07/02/17 13:47 125 MLS/HR Review of Systems Review of Systems Constitutional: No see HPI, No fever, No chills, No frequent headaches, No weight loss, No problem reported Eyes: No see HPI, No blurred vision, No double vision, No eye pain, No loss of night vision, No problem reported Neurological: No see HPI, No dizzy, No passing out, No numbness/tingling, No seizures, No problem reported Endocrine: No see HPI, No excessive thirst, No too hot, No too cold, No tired/ sluggish, No problem reported Gastrointestinal: + abdominal pain Cardiovascular: No see HPI, No heart murmur, No chest pain, No angina, No irregular heartbeat, No palpitations, No swelling ankles/feet, No problem reported Respiratory: No see HPI, No shortness of breath, No wheezing, No coughing up blood, No chronic cough, No problem reported Skin: No see HPI, No rash, No boils, No dry skin, No problem reported Musculoskeletal: No see HPI, No joint pain, No neck pain, No back pain, No arthritis, No problem reported Blood / Lymphatic: No see HPI, No bleed easily, No bruise easily, No swollen glands, No problem reported Ears / Nose / Throat: No see HPI, No hearing loss, No sinus, No hoarse voice, No sore throat, No problem reported Psychologic / Mental: No see HPI, No nervous, No trouble remembering, No difficulty sleeping, No problem reported Male : + frequent urination, + urinary retention, + weak stream, + problem reported All Other Systems: Reviewed and Negative Physical Exam Vital Signs: Vital Signs Past 12 Hours Date Time Temp Pulse Resp B/P (MAP) Pulse Ox O2 Delivery O2 Flow Rate FiO2 07/02/17 07:30 Room Air 07/02/17 07:19 37.1 94 17 103/60 (74) 94 Room Air Physical Exam: General Appearance: WD/WN, no apparent distress Eyes: bilateral eyes normal inspection ENT: hearing grossly normal Neck: no adenopathy Respiratory/Chest: no respiratory distress, no accessory muscle use Cardiovascular: regular rate, rhythm, no edema Gastrointestinal: Bladder: normal bladder Renal: normal renal Genitourinary - Male: Penis: normal penis, circumcised Testes: normal testes (right side is unremarkable), tenderness, hydrocele, pertinent finding (no ecchymosis/bruising; tender along the cord -not as tender over the hydrocele) Scrotum: normal scrotum (minimal edema, no evidence of infectious procress involving the scrotal skin) Extremities: no pedal edema, no calf tenderness Neurologic/Psychiatric: alert, normal mood/affect, oriented x 3 Skin: warm/dry Lymphatic: no adenopathy Assessment & Plan Assessment & Plan Hydrocele; epididymitis/prostatitis; BPH - PLAN: - I have recommended we try to address his issues in sequence rather than parallel - #1 - cont IV abx - he already reports improvement since arrival here - complete treatment of his epididymitis/prostatitis is our first step in treatment #2 - after resolution of his acute symptoms, if he has not had improvement in his swelling, he would be a candidate for outpt hydrocelectomy #3 - voiding dysfunction - has been on occasional tamsulosin - but gets dizzy - trial of alfuzosin as an alternative now - consider proscar as well - pending improvement in the near future, he may be a candidate for TURP/ urolift in the future #4 Constipation - bowel regimen now
--- NOTE | 2017-07-02 14:52 | Pharmacy Progress Note ---
Pharmacy Abx Dose Short Note Date of Service Jul 02, 2017. Assessment & Plan Assessment * 61 year old male receiving IV Vancomycin/Rocephin for treatment of large hydrocele, epididymitis/prostatitis * Patient was recently treated with Cipro/Flagyl x1 week as an outpatient. * PMH is significant for BPH and extensive history of voiding dysfunction. * Patient has been afebrile and WBC are WNL. Renal function appears to be stable. Item Value Date Time Blood Culture Received 07/01/172029 Blood Pending Blood Culture Received 07/01/172019 Blood Pending Plan Vancomycin * Vancomycin 2000mg IV x1 dose given on admission overnight, then * Vanc 1250mg (~15mg/kg) IV q12h * Goal trough level for epididymitis/prostatitis: 15 to 20 mcg/mL pending C/S results * Trough level ordered for: 07/04 prior to the 4th maintenance dose Ceftriaxone 1gm IV q24h -- not a pharmacy consult Pharmacy will continue to follow and will adjust dose/frequency as necessary. Thank you.
[2017-07-02 15:30] VITALS: BP 108/69; PULSE 78; TEMP 37.2; O2SAT 96
[2017-07-02] MEDS ORDERED: LACTULOSE SYRUP 30 GM/45 ML UDP PO STA (18:17)
[2017-07-02] MEDS: LACTATED RINGER'S 1000ML 1,000 ML IV SCH (18:25)
[2017-07-02] MEDS: DOCUSATE SODIUM 100 MG CAP PO SCH (21:00)
[2017-07-02] MEDS: CEFTRIAXONE SOD INJ 1 GM in DEXTROSE 5% ADD-VANTAGE 50ML 50 ML IV SCH (21:02)
--- NOTE | 2017-07-02 22:32 | Progress Note ---
Progress Note Date of Service Jul 02, 2017. Progress Note 1) Hydrocele - scrotal pain with limited mobility - possible hydrocele infection and epididymitis. Placed on Ceftriaxone and Vanc. was seen by urology who recommends treatment by stages. Will need to treat infection with antibiotics first before attempting surgical repair. 2) HTN - cont Pindolol 3) HPL - treats with fish oil normally 4) CAD - no evidence of ACS - cont ASA, B savannah 5) BPH - cont Flomax
[2017-07-02 23:16] VITALS: BP 119/77; PULSE 88; TEMP 37.2; O2SAT 97
[2017-07-03] MEDS: VANCOMYCIN IV 1,250 MG in SODIUM CHLORIDE 0.9% 250ML 250 ML IV SCH ×2 (01:53→14:43)
[2017-07-03] MEDS: LACTATED RINGER'S 1000ML 1,000 ML IV SCH ×2 (04:16→14:38)
[2017-07-03 06:45] LABS: CREATININE 0.82 mg/dl (0.60-1.40)
[2017-07-03 07:24] VITALS: BP 115/66; PULSE 97; TEMP 37.5; O2SAT 97
[2017-07-03] MEDS: DOCUSATE SODIUM 100 MG CAP PO SCH ×2 (09:00→20:52)
[2017-07-03] MEDS: ASPIRIN 81 MG ECTAB PO SCH (09:45)
[2017-07-03] MEDS: ALFUZosin TAB 10 MG TAB PO SCH (09:45)
--- NOTE | 2017-07-03 10:29 | Progress Note ---
Subjective Date of Service: Jul 03, 2017. Subjective Pt evaluation today including: conversation w/ patient, chart review, lab review Voiding: no voiding problems 61 yo male with large left hydrocele vs spermatocele; epididymitis, and suspected prostatitis. Pt reports his n/v has improved. Continues to have some pain and swelling. He feels it is a waste of time to treat him with antibiotics, and feels his testicle "should be cut off." Blood culture preliminarily negative. Unfortunately no UC&S was performed. He remains afebrile. He was switched from tamsulosin to alfuzosin this morning. He has not yet received his first dose. Problem List Medical Problems: (1) Failure of outpatient treatment Status: Acute (2) Scrotal infection Status: Acute Review of Systems Constitutional: No fever, No chills Respiratory: No shortness of breath Cardiac: No chest pain Abdomen: No pain, No nausea, No vomiting Male : + problem reported (scrotal swelling and pain ), No dysuria, No hematuria Heme: No abnormal bleeding/bruising Objective Vital Signs Date Time Temp Pulse Resp B/P (MAP) Pulse Ox O2 Delivery O2 Flow Rate FiO2 07/03/17 07:24 37.5 97 16 115/66 (82) 97 Room Air 07/02/17 23:16 37.2 88 16 119/77 (91) 97 Room Air 07/02/17 19:30 Room Air 07/02/17 17:19 Room Air 07/02/17 15:30 37.2 78 17 108/69 (82) 96 Room Air Physical Exam General Appearance: no apparent distress Eyes: normal inspection ENT: hearing grossly normal Neck: no JVD Respiratory/Chest: no respiratory distress, no accessory muscle use Cardiovascular: no JVD Extremities: normal inspection Neurologic/Psychiatric: alert, normal mood/affect, oriented x 3 Skin: normal color Comments: Scrotum remains enlarged L>R with some erythema. Laboratory Results Last 24 Hours Test 07/03/17 05:37 Creatinine 0.82 mg/dl Est Creatinine Clear Calc Drug Dose 95.2 ml/min Estimated GFR () 109.1 Estimated GFR (Non- 94.1 Assessment and Plan A/P: Left hydrocele, epididymitis/prostatitis, BPH AFVSS. 1. Epididymitis/prostatitis Discussed with the pt that it can take several weeks for pain to resolves. Will need 4-6 weeks of abx for possible prostatitis. Consider transitioning to Bactrim DS prior to d/c home as he felt Cipro made his symptoms worse previously. Will also add in sitz baths, scrotal elevation, and scrotal support for supportive management. Would also consider NSAIDs for pain control, however the pt reports rectal bleeding with ASA although it does appear he is on a daily ASA at this time. 2. Left hydrocele Discussed at length with the pt this morning the importance of attempting to resolve his infection prior to any surgical management. We have also discussed that an orchiectomy is not the correct treatment for his problems. He states that is disagrees, but is "at your mercy." 3. BPH Continue alfuzosin for now. The pt would like to transition his urologic care to Dr. Arnold for outpatient management in the future. Will arrange. Will continue to follow along with primary service.
--- NOTE | 2017-07-03 12:23 | Pharmacy Progress Note ---
Pharmacy Abx Dose Progress Nt Date of Service Jul 03, 2017. Pharmacy Dosing Scope The patient is currently receiving the following antimicrobial agents per Pharmacy consult: Vancomycin 1250 mg IV every 12 hours Objective Height (Feet): 5 Height (Inches): 10.00 Weight (Kilograms): 79.900 Vital Signs (Past 12Hrs) Vital Signs Past 12 Hours Date Time Temp Pulse Resp B/P (MAP) Pulse Ox O2 Delivery O2 Flow Rate FiO2 07/03/17 07:24 37.5 97 16 115/66 (82) 97 Room Air Micro Results Date/Time Source Procedure Growth Status 07/01/17 20:30 Blood Blood Culture - Preliminary NO GROWTH TO DATE. Resulted 07/01/17 20:20 Blood Blood Culture - Preliminary NO GROWTH TO DATE. Resulted Risk Factors for Resistance * Antimicrobial use within the last 90 days - Cipro and Flagyl x 1 wk Assessment & Plan Assessment 07/02/17 * 61 year old male receiving IV Vancomycin/Rocephin for treatment of large hydrocele, epididymitis/prostatitis * Patient was recently treated with Cipro/Flagyl x1 week as an outpatient. * PMH is significant for BPH and extensive history of voiding dysfunction. * Patient has been afebrile and WBC are WNL. Renal function appears to be stable. 07/03/17 * Today is day #2 of antibiotics * Urology was consulted and recommending Bactrim on discharge * Patient still with pain/swelling today * SCr improved further today (1.1 -> 1.06 -> 0.82), so vanc trough level was obtained earlier (when level expected to be in therapeutic range) rather than adjusting the dose Plan Vancomycin IV * Trough level of 14.1 mcg/mL is therapeutic - drawn 2.5 hrs early. Noted that this prior to steady state but SCr has been improving daily * New est t1/2 ~ 8.3 hrs * Change to 1250 mg IV every 10 hours * Goal trough level for epididymitis/prostatitis : ~15 mcg/mL * Trough or random level ordered for: 07/05/17 prior to the 5th dose of new regimen Rocephin * Not dosed by pharmacy but is appropriate Pharmacy will continue to follow and will adjust dose/frequency as necessary. Thank you.
[2017-07-03 15:45] VITALS: BP 113/68; PULSE 77; TEMP 37; O2SAT 97
[2017-07-03] MEDS: CEFTRIAXONE SOD INJ 1 GM in DEXTROSE 5% ADD-VANTAGE 50ML 50 ML IV SCH (21:34)
[2017-07-03] MEDS ORDERED: VANCOMYCIN IV 1,250 MG in SODIUM CHLORIDE 0.9% 250ML 250 ML IV SCH (22:00)
--- NOTE | 2017-07-03 23:10 | Progress Note ---
Subjective Date of Service: Jul 03, 2017. Subjective Pt evaluation today including: conversation w/ patient, physical exam 61 yo male reports decreased pain in his testicles today, but it is still moderate in intensity. Patient reports that he was also able to have a bowel movement yesterday. Problem List Medical Problems: (1) Failure of outpatient treatment Status: Acute (2) Scrotal infection Status: Acute Review of Systems Constitutional: No fever, No chills Eyes: No worsening of vision ENT: No hearing loss Respiratory: No cough Cardiac: No chest pain Breast: No breast lump Abdomen: No pain Male : + problem reported (warmth and rednness around enlarged left testicle) Psychiatric: No depression symptoms Heme: No abnormal bleeding/bruising Endo: No fatigue Skin: No rash All Other Systems: Reviewed and Negative Medications Current Inpatient Medications Medications (Trade) Dose Ordered Sig/Renita Route Start Time Stop Time Status Last Admin Dose Admin Ioversol (Optiray 320) 119 ml UD PRN IV 07/01/17 22:00 07/05/17 21:59 Miscellaneous Information (Consult) 1 ea UD PRN N/A 07/02/17 01:00 08/01/17 00:59 Ceftriaxone Sodium 1 gm/ Dextrose 50 ml @ 100 mls/hr Q24H IV 07/02/17 22:00 07/12/17 21:59 07/03/17 21:34 100 MLS/HR Hydromorphone HCl (Dilaudid Inj) 0.5 mg Q3H PRN IV 07/02/17 01:00 07/16/17 00:59 Aspirin (Ecotrin Tab) 81 mg DAILY PO 07/02/17 09:00 08/01/17 08:59 07/03/17 09:45 81 MG Miscellaneous Information (Order Awaiting Action) 1 ea QS N/A 07/02/17 02:30 08/01/17 02:29 Acetaminophen (Tylenol Tab) 650 mg Q4H PRN PO 07/02/17 01:15 08/01/17 01:14 Al Hydrox/Mg Hydrox/Simethicone (Maalox Max Susp) 15 ml Q4H PRN PO 07/02/17 01:15 08/01/17 01:14 Magnesium Hydroxide (Milk Of Magnesia Susp) 30 ml Q6H PRN PO 07/02/17 01:15 08/01/17 01:14 Polyethylene (Miralax Powder Packet) 17 gm DAILY PRN PO 07/02/17 02:15 08/01/17 02:14 Zolpidem Tartrate (Ambien Tab) 5 mg HSZ PRN PO 07/02/17 01:15 08/01/17 01:14 Ondansetron HCl (Zofran Inj) 4 mg Q6H PRN IV 07/02/17 01:15 08/01/17 01:14 Alfuzosin HCl (Uroxatral Tab) 10 mg QAM PO 07/03/17 09:00 08/02/17 08:59 07/03/17 09:45 10 MG Docusate Sodium (coLACE CAP) 100 mg BID PO 07/02/17 21:00 08/01/17 20:59 Lactated Ringer's 1,000 ml @ 100 mls/hr Q10H IV 07/02/17 18:15 08/01/17 18:14 07/04/17 05:40 100 MLS/HR Vancomycin HCl 1250 mg/Sodium Chloride 275 ml @ 125 mls/hr Q10H IV 07/03/17 22:00 07/12/17 21:59 07/03/17 22:38 125 MLS/HR Objective Vital Signs Date Time Temp Pulse Resp B/P (MAP) Pulse Ox O2 Delivery O2 Flow Rate FiO2 07/03/17 17:00 Room Air 07/03/17 15:45 37.0 77 18 113/68 (83) 97 Room Air 07/03/17 07:24 37.5 97 16 115/66 (82) 97 Room Air 07/03/17 07:15 Room Air 07/02/17 23:16 37.2 88 16 119/77 (91) 97 Room Air Physical Exam General Appearance: WD/WN, no apparent distress Eyes: normal inspection ENT: normal ENT inspection Neck: supple, no adenopathy Respiratory/Chest: chest non-tender, lungs clear, normal breath sounds Cardiovascular: regular rate, rhythm, no edema Abdomen: normal bowel sounds, non tender, soft Extremities: non-tender, normal inspection Neurologic/Psychiatric: alert, oriented x 3 Skin: normal color Lymphatic: no adenopathy Comments: Genitals: pertinent finding (Sweling and erythema of scrotum) Laboratory Results Last 24 Hours Test 07/03/17 05:37 07/03/17 11:00 Creatinine 0.82 mg/dl Est Creatinine Clear Calc Drug Dose 95.2 ml/min Estimated GFR () 109.1 Estimated GFR (Non- 94.1 Vancomycin Level Trough 14.1 mcg/ml Assessment and Plan 61 y/o M Hx HTN, HPL, BPH, CAD. The pt developed swelling in his L testicle beginning 4 months prior and was subsequently diagnosed with a hydrocele on US. Over the past week he has experienced increasing swelling, pain and dysuria. He is having difficulty mobilizing due to the swelling. He denies fevers or rigors. The pt was placed on Cipro/Flagyl one week prior by his PCP due to concern for hydrocele infection 1) Hydrocele - scrotal pain with limited mobility - possible hydrocele infection and epididymitis. Placed on Ceftriaxone and Vanc. was seen by urology who recommends treatment by stages. Will need to treat infection with antibiotics first before attempting surgical repair. Explained to patient that urology willl likely do procedure as outpatient. No urine cultures was drawn. Awaiting blood culture. If blood culture negative, will switch to bactrim PO If Urology will do procedure as outpatient, patient can then be discharged home on oral antibiotics I answered all patients concerns today. 2) HTN - cont Pindolol BP at goal. 3) HPL - treats with fish oil normally 4) CAD - no evidence of ACS - cont ASA, B savannah 5) BPH - cont Flomax Full code - SCDs Continued [facility] stay due to: inadequate oral pain control, other Discharge planning: home
[2017-07-03 23:23] VITALS: BP 122/77; PULSE 75; TEMP 37; O2SAT 98
[2017-07-04] MEDS ORDERED: NURSING DECISION MEDICATION ORDER SCH (01:00)
[2017-07-04] MEDS ORDERED: VANCOMYCIN TROUGH ONE (01:30)
[2017-07-04] MEDS: LACTATED RINGER'S 1000ML 1,000 ML IV SCH (05:40)
[2017-07-04 07:03] LABS: HEMATOCRIT 36.2 % (42-52); HEMOGLOBIN 12.6 g/dL (14.0-18.0); MEAN CELL VOLUME 91.6 fL (80-100); MEAN CORPUSCULAR HEMOGLOBIN 31.9 pg (25-34); MEAN CORPUSCULAR HGB CONC 34.8 g/dl (32-36); MEAN PLATELET VOLUME 10.5 fL (7.4-10.4); PLATELET COUNT 181 K/uL (130-400); RED CELL DISTRIBUTION WIDTH CV 12.9 % (11.5-14.5); RED CELL DISTRIBUTION WIDTH SD 43.6 fL (36.4-46.3); WHITE BLOOD COUNT 5.35 K/uL (4.8-10.8)
[2017-07-04 07:41] LABS: CALCIUM 8.4 mg/dl (8.5-10.1); CREATININE 0.87 mg/dl (0.60-1.40); POTASSIUM 3.3 mmol/L (3.5-5.1)
[2017-07-04 08:19] VITALS: BP 122/70; PULSE 95; TEMP 37.3; O2SAT 97
[2017-07-04] MEDS: DOCUSATE SODIUM 100 MG CAP PO SCH ×2 (09:00→21:00)
[2017-07-04] MEDS: ASPIRIN 81 MG ECTAB PO SCH (09:03)
[2017-07-04] MEDS: ALFUZosin TAB 10 MG TAB PO SCH (09:03)
[2017-07-04] MEDS ORDERED: POTASSIUM CHLORIDE 10 MEQ TABCR PO STA (09:21)
[2017-07-04] MEDS ORDERED: NURSING VERBAL MED ORDER STA (09:33)
[2017-07-04] MEDS ORDERED: NAPROXEN 250 MG TAB PO ONE (10:00)
[2017-07-04] MEDS: SULFAMETHOXAZOLE/TRIMETHOPRIM DS 800/160MG TAB PO SCH ×2 (10:55→21:00)
--- NOTE | 2017-07-04 14:50 | Progress Note ---
Subjective Date of Service: Jul 04, 2017. Subjective Pt evaluation today including: conversation w/ patient, physical exam, chart review, lab review, review of studies, conversation w/ it solutions sales consultant, review of inpatient medication list Reported left testis still swelling and tender, possible feeling the same as yesterday, report has decreased appetite, Denies fever and chill, Problem List Medical Problems: (1) Failure of outpatient treatment Status: Acute (2) Scrotal infection Status: Acute Review of Systems Constitutional: No fever, No chills, No sweats, No weight loss, No weakness, No fatigue, No problem reported Eyes: No worsening of vision, No eye pain, No redness, No discharge, No diplopia ENT: No hearing loss, No unusual epistaxis, No nasal symptoms, No sore throat, No tinnitus, No dental problems, No trouble swallowing Respiratory: No cough, No sputum, No wheezing, No shortness of breath, No dyspnea on exertion, No dyspnea at rest, No hemoptysis Cardiac: No chest pain, No orthopnea, No PND, No edema, No claudication, No palpitations Abdomen: No pain, No nausea, No vomiting, No diarrhea, No constipation Musculoskeletal: No joint pain, No muscle pain, No swelling, No calf pain Male : + see HPI, No dysuria, No urinary frequency, No incontinence, No nocturia more than once/night, No slowing stream, No hematuria Neurologic: No memory loss, No paralysis, No weakness, No numbness/tingling, No vertigo, No balance problems Psychiatric: No depression symptoms, No anhedonism, No anxiety, No insomnia, No substance abuse Heme: No abnormal bleeding/bruising, No clotting problems, No swollen lymph nodes, No night sweats Endo: No fatigue, No excessive thirst, No excessive urination Skin: No rash, No itch, No new/changing skin lesions, No color change, No bleeding Objective Vital Signs Date Time Temp Pulse Resp B/P (MAP) Pulse Ox O2 Delivery O2 Flow Rate FiO2 07/04/17 08:19 37.3 95 16 122/70 (87) 97 Room Air 07/04/17 08:15 Room Air 07/04/17 00:00 Room Air 07/03/17 23:23 37.0 75 18 122/77 (92) 98 Room Air 07/03/17 17:00 Room Air 07/03/17 15:45 37.0 77 18 113/68 (83) 97 Room Air Physical Exam General Appearance: WD/WN, no apparent distress Eyes: normal inspection, PERRL, EOMI, sclerae normal ENT: normal ENT inspection, hearing grossly normal, pharynx normal Neck: supple, no adenopathy, thyroid normal, no JVD, no carotid bruits, trachea midline Respiratory/Chest: chest non-tender, lungs clear, normal breath sounds, no respiratory distress, no accessory muscle use Cardiovascular: regular rate, rhythm, no edema, no gallop, no JVD, no murmur Abdomen: normal bowel sounds, non tender, soft, no organomegaly, no pulsatile mass, + pertinent finding (Scrotal is red and swollen, left testis is enlargement like a gulf ball, and hard to press and tender to press) Extremities: normal range of motion, non-tender, normal inspection, no pedal edema, no calf tenderness, normal capillary refill, pelvis stable Neurologic/Psychiatric: elementary principal II-XII nml as tested, no motor/sensory deficits, alert, normal mood/affect, oriented x 3 Skin: normal color, warm/dry, no rash Lymphatic: no adenopathy Laboratory Results Last 24 Hours Test 07/04/17 06:05 White Blood Count 5.35 K/uL Red Blood Count 3.95 M/uL Hemoglobin 12.6 g/dL Hematocrit 36.2 % Mean Corpuscular Volume 91.6 fL Mean Corpuscular Hemoglobin 31.9 pg Mean Corpuscular Hemoglobin Concent 34.8 g/dl RDW Standard Deviation 43.6 fL RDW Coefficient of Variation 12.9 % Platelet Count 181 K/uL Mean Platelet Volume 10.5 fL Sodium Level 139 mmol/L Potassium Level 3.3 mmol/L Chloride Level 108 mmol/L Carbon Dioxide Level 25 mmol/L Anion Gap 6.0 mmol/L Blood Urea Nitrogen 8 mg/dl Creatinine 0.87 mg/dl Est Creatinine Clear Calc Drug Dose 89.7 ml/min Estimated GFR () 106.5 Estimated GFR (Non- 91.9 BUN/Creatinine Ratio 9.0 Random Glucose 92 mg/dl Calcium Level 8.4 mg/dl Assessment and Plan 61 y/o M admitted on July 02, 2017 because of left testitis, epididymitis associated with hydrocele He developed swelling in his L testicle beginning 4 months prior and was subsequently diagnosed with a hydrocele on US. Over the past week prior to his admission he has experienced increasing swelling , pain and dysuria. He is having difficulty mobilizing due to the swelling. The pt was placed on Cipro/Flagyl one week prior by his PCP due to concern for hydrocele infection Epididymitis with hydrocele , scrotal pain with limited mobility: Relative stable improving, no fever and chill, no leukocytosis, Has been on on Ceftriaxone and Vanc, so far cultures negative was seen by urology who recommends treatment by stages Has notified to patient that urology willl likely do procedure as outpatient by urologist Today has switched to bactrim PO flow IV antibiotic Will discuss with urology for the next step Hx HTN, HPL, BPH, CAD, stable continue current medication Full code - SCDs Possible discharge home tomorrow if agreeable with urologist After discussing the risk and benefit, patient agreed to try one dose of naproxen for anti-inflammatory and for the pain Continued [facility] stay due to: inadequate oral pain control, other Discharge planning: home
[2017-07-04 15:30] VITALS: O2SAT 97
[2017-07-04 15:56] VITALS: BP 117/74; PULSE 61; TEMP 37; O2SAT 98
--- NOTE | 2017-07-04 18:12 | Progress Note ---
Subjective Date of Service: Jul 04, 2017. Subjective Pt evaluation today including: conversation w/ patient, conversation w/ family , chart review, lab review Voiding: no voiding problems Pt continues to c/o scrotal pain. He states it feels like a "toothache." Sitz baths made the pain worse. Feels his scrotum is larger today. Transitioned to PO Bactrim DS today. Problem List Medical Problems: (1) Failure of outpatient treatment Status: Acute (2) Scrotal infection Status: Acute Review of Systems Constitutional: No fever, No chills Respiratory: No shortness of breath Cardiac: No chest pain Abdomen: No pain, No nausea Male : No dysuria, No hematuria Heme: No abnormal bleeding/bruising Objective Vital Signs Date Time Temp Pulse Resp B/P (MAP) Pulse Ox O2 Delivery O2 Flow Rate FiO2 07/04/17 15:56 37.0 61 18 117/74 (88) 98 Room Air 07/04/17 15:30 97 Room Air 07/04/17 08:19 37.3 95 16 122/70 (87) 97 Room Air 07/04/17 08:15 Room Air 07/04/17 00:00 Room Air 07/03/17 23:23 37.0 75 18 122/77 (92) 98 Room Air Physical Exam General Appearance: no apparent distress Eyes: normal inspection ENT: hearing grossly normal Neck: no JVD Respiratory/Chest: no respiratory distress, no accessory muscle use Cardiovascular: no JVD Extremities: normal inspection Neurologic/Psychiatric: alert, normal mood/affect, oriented x 3 Skin: normal color Comments: + scrotal edema, large left sided hydrocele Laboratory Results Last 24 Hours Test 07/04/17 06:05 White Blood Count 5.35 K/uL Red Blood Count 3.95 M/uL Hemoglobin 12.6 g/dL Hematocrit 36.2 % Mean Corpuscular Volume 91.6 fL Mean Corpuscular Hemoglobin 31.9 pg Mean Corpuscular Hemoglobin Concent 34.8 g/dl RDW Standard Deviation 43.6 fL RDW Coefficient of Variation 12.9 % Platelet Count 181 K/uL Mean Platelet Volume 10.5 fL Sodium Level 139 mmol/L Potassium Level 3.3 mmol/L Chloride Level 108 mmol/L Carbon Dioxide Level 25 mmol/L Anion Gap 6.0 mmol/L Blood Urea Nitrogen 8 mg/dl Creatinine 0.87 mg/dl Est Creatinine Clear Calc Drug Dose 89.7 ml/min Estimated GFR () 106.5 Estimated GFR (Non- 91.9 BUN/Creatinine Ratio 9.0 Random Glucose 92 mg/dl Calcium Level 8.4 mg/dl Assessment and Plan A/P: Left hydrocele, epididymitis/prostatitis, BPH AFVSS. Long discussion with the pt and his daugther today with myself and Dr. Gonzalez regarding the physiology of the pt's scrotal swelling, expected course of pain and swelling, and follow care and planning. 1. Epididymitis/prostatitis Recommend continuing Bactrim DS for 3-4 weeks. Continue to recommend supportive management with scrotal elevation and scrotal support. Will also order ice packs to the scrotum. 2. Left hydrocele Continue to plan for outpatient surgical management once infection/inflammation have improved. Will plan for outpatient f/u with Dr. Arnold in the next 2-3 weeks to discuss surgical management. 3. BPH Continue alfuzosin for now. Pt OK for d/c home from [facility] in the next 1-2 days. Recommend d/c home on 3-4 weeks of Bactrim DS. Will arrange for outpatient f/u with Dr. Arnold. Will sign for now. Recall PRN issues. Thanks for allowing us to participate in this pt's care. Continued [facility] stay due to: inadequate oral pain control, other Discharge planning: home
[2017-07-04 23:01] VITALS: BP 113/74; PULSE 78; TEMP 36.8; O2SAT 97
[2017-07-05] MEDS ORDERED: VANCOMYCIN TROUGH ONE (03:30)
[2017-07-05 07:36] VITALS: BP 110/73; PULSE 78; TEMP 36.6; O2SAT 95
[2017-07-05] MEDS: DOCUSATE SODIUM 100 MG CAP PO SCH (09:00)
[2017-07-05] MEDS ORDERED: CLC100 PO (09:02)
[2017-07-05] MEDS ORDERED: URX/10 PO (09:02)
[2017-07-05] MEDS ORDERED: SULF-302 PO (09:02)
[2017-07-05] MEDS ORDERED: MRLP17X PO (09:02)
--- NOTE | 2017-07-05 09:04 | Discharge Instructions ---
Discharge Instructions Date of Service Jul 05, 2017. Admission Reason for Admission: Cellulitis,Scrotum,Hydrocele In Adult Discharge Discharge Diagnosis / Problem: Left hydrocele, epididymitis/prostatitis Discharge Goals Goal(s): Decrease discomfort, Improve function, Increase independence, Improve disease control, Improve nutritional status, Learn about illness, Diagnostic testing, Therapeutic intervention, Prevent Disease Progression, Specific goals Activity Recommendations Activity Limitations: resume your previous activity . Instructions / Follow-Up Instructions / Follow-Up you have Left hydrocele, epididymitis/prostatitis you need continuing Bactrim DS for 3-4 weeks, continue scrotal elevation and scrotal support, ok ice packs to the scrotum. you need to have outpatient follow up with Dr. Arnold in the next 2-3 weeks to discuss surgical management. recommend Aleve 250mg oral daily for 'anti-inflammatory" daily fro 1 week, hold when you see rectal bleeding, and report to your PCP.. - you need to follow up with your primary care physician in 1 week, - take medication as instructed, never overdose or any misuse, or take with alcohol, because misuse of medicine may cause organ damage or , call your primary care physician if have questions of medicaitons. - call your primary care physician OR go to local emergency room if has any fever/chill, chest pain, shortness of breathing, nausea/vomiting/abdominal pain , facial droop/slurry speech/local weakness, or if has any questions. - fall precaution - diet as instructed - you need to follow up with your subspecialist - you should understand that it is important to follow up the above instruction , and "not following the above instruction" may cause delayed or missed care of your medical conditions which may cause permanent organ damage and even . Current Hospital Diet Patient's current hospital diet: Clear Liquid Diet Discharge Diet Recommended Diet: AHA Diet (Heart Healthy) Pending Studies Studies pending at discharge: no Laboratory Results Lipid Panel Test 06/19/17 15:07 Range/Units Triglycerides Level 114 0-150 mg/dl Cholesterol Level 224 H 0-200 mg/dl HDL Cholesterol 51 mg/dl Cholesterol/HDL Ratio 4.4 LDL Cholesterol, Calculated 150 mg/dl Medical Emergencies . Who to Call and When: Medical Emergencies: If at any time you feel your situation is an emergency, please call 911 immediately. . Non-Emergent Contact Non-Emergency issues call your: Primary Care Provider, Urologist . . "Provider Documentation" section prepared by Johan Vera. .
[2017-07-05] MEDS: SULFAMETHOXAZOLE/TRIMETHOPRIM DS 800/160MG TAB PO SCH (09:11)
[2017-07-05] MEDS: ASPIRIN 81 MG ECTAB PO SCH (09:11)
[2017-07-05] MEDS: ALFUZosin TAB 10 MG TAB PO SCH (09:11)
[2017-07-05 11:00] VITALS: BP 110/73; PULSE 78; TEMP 36.6; O2SAT 95
[2017-07-05] MEDS ORDERED: NURSING VERBAL MED ORDER ONE (11:45)
--- NOTE | 2017-07-05 15:33 | Discharge Summary ---
Discharge Summary Date of Service Jul 05, 2017. Discharge Summary Admission Date: Jul 02, 2017 at 01:06 Discharge Date: Jul 05, 2017 Discharge Disposition: Home Principal Diagnosis: Left hydrocele, epididymitis/prostatitis Procedures: No Consultations: Urologist Medication Reconciliation New Medications: Alfuzosin HCl (Alfuzosin HCl ER) 10 Mg Tab 10 MG PO QAM for 30 Days, #30 TAB Docusate Sodium (Docusate Sodium) 100 Mg Cap 100 MG PO BID for 30 Days, #60 CAP Polyethylene (Miralax) 17 Gm Pow 17 GM PO DAILY PRN for Constipation for 30 Days, #30 Sulfamethoxazole-Trimethoprim (Smz-Tmp Ds) 1 Tab Tab 1 TAB PO Q12 for 28 Days, #56 TAB Continued Medications: Aspirin (Aspirin Ec) 81 Mg Tab 81 MG PO DAILY Coenzyme Q10 (Ubidecarenone) (Co Q 10) 100 Mg Cap 100 MG PO DAILY Fish Oil ([place]-3) 1 Ea Cap 2000 MG PO DAILY, CAP Multiple Vitamin (Multivitamin) 1 Tab Tab 1 TAB PO DAILY, TAB Nitroglycerin (Nitrostat) 0.4 Mg Sub 0.4 MG UT UD PRN for Chest Pain, BTL PLACE ONE TABLET UNDER THE TONGUE EVERY 5 MINUTES FOR UP TO 3 DOSES OVER 15 MINUTES IF NEEDED FOR CHEST PAIN Oxycodone/Acetaminophen 7.5MG/325MG (Oxycodone/Acetaminophen 7.5MG/325MG) 1 Tab Tab 1 TAB PO Q4H PRN for Pain, TAB Pindolol (Visken) 5 Mg Tab 2.5 MG PO BID, TAB Probiotic Product (Acidophilus) 1 Chw Chw 1 TAB PO DAILY Propranolol (Inderal) 10 Mg Tab 10 MG PO UD PRN for Tachycardia, TAB Tamsulosin Hcl (Flomax) 0.4 Mg Cap 0.4 MG PO DAILY, CAP Discontinued Medications: Ciprofloxacin Hcl (Cipro) 500 Mg Tab 500 MG PO Q12 for 14 Days, #28 TAB PRESCRIBED 06/26/2017, TAKE DIRECTED UNTIL GONE Metronidazole (Flagyl) 500 Mg Tab 500 MG PO TID, #21 TAB PRESCRIBED 06/26/2017, TAKE DIRECTED UNTIL GONE Discharge Exam Doing better than yesterday, Review of Systems: Constitutional: No fever, No chills, No sweats, No weight loss, No weakness , No fatigue, No problem reported Eyes: No worsening of vision, No eye pain, No redness, No discharge, No diplopia, No problem reported ENT: No hearing loss, No unusual epistaxis, No nasal symptoms, No sore throat, No tinnitus, No dental problems, No trouble swallowing, No problem reported Respiratory: No cough, No sputum, No wheezing, No shortness of breath, No dyspnea on exertion, No dyspnea at rest, No hemoptysis, No problem reported Cardiovascular: No chest pain, No orthopnea, No PND, No edema, No claudication, No palpitations, No problem reported Abdomen: No pain, No nausea, No vomiting, No diarrhea, No constipation, No GI bleeding, No problem reported Musculoskeletal: No joint pain, No muscle pain, No swelling, No calf pain, No problem reported Genitourinary - Male: + problem reported (Left testis and scrotal possible less swelling and pain) Neurologic: No memory loss, No paralysis, No weakness, No numbness/tingling , No vertigo, No balance problems, No problem reported Psychiatric: No depression symptoms, No anhedonism, No anxiety, No insomnia , No substance abuse, No problem reported Endocrine: No fatigue, No excessive thirst, No excessive urination, No problem reported Hematologic / Lymphatic: No abnormal bleeding/bruising, No clotting problems , No swollen lymph nodes, No night sweats, No problem reported Integumentary: No rash, No itch, No new/changing skin lesions, No color change, No bleeding, No problem reported Physical Exam: General Appearance: WD/WN, no apparent distress Eyes: normal inspection, PERRL, EOMI ENT: normal ENT inspection, hearing grossly normal Neck: supple, no adenopathy Respiratory/Chest: chest non-tender, normal breath sounds, no respiratory distress, no accessory muscle use, + decreased breath sounds Cardiovascular: regular rate, rhythm, no edema, no gallop, no JVD Abdomen / GI: normal bowel sounds, non tender, soft, no organomegaly, no pulsatile mass Extremities: normal inspection, no calf tenderness, normal capillary refill Neurologic/Psychiatric: awning hanger II-XII nml as tested, no motor/sensory deficits , alert, normal mood/affect Skin: normal color, warm/dry, no rash Hospital Course 61 y/o M admitted on July 02, 2017 because of left testitis, epididymitis associated with hydrocele He developed swelling in his L testicle beginning 4 months prior and was subsequently diagnosed with a hydrocele on US. Over the past week prior to his admission he has experienced increasing swelling , pain and dysuria. He is having difficulty mobilizing due to the swelling. The pt was placed on Cipro/Flagyl one week prior by his PCP due to concern for hydrocele infection Epididymitis with hydrocele , scrotal pain with limited mobility: Relative stable improving, no fever and chill, no leukocytosis, Has been on on Ceftriaxone and Vanc, so far cultures negative was seen by urology who recommends treatment by stages Has notified to patient that urology willl likely do procedure as outpatient by urologist has switched to bactrim PO from IV antibiotic, oral antibiotic will be totally 3 -4 week Has detailed discussion about the risk and benefit of NSAID for anti- inflammatory, because patient has history of rectal bleeding, etiology unknown while he was on ibuprofen, I did recommend about cautious getting small dose and short period Of Aleve for anti-inflammatory of the testes inflammation but did advise him to stop Aleve and call to PCP right away if has any rectal bleeding. He agreed Hx HTN, HPL, BPH, CAD, stable continue current medication Full code - SCDs Instructions / Follow-Up you have Left hydrocele, epididymitis/prostatitis you need continuing Bactrim DS for 3-4 weeks, continue scrotal elevation and scrotal support, ok ice packs to the scrotum. you need to have outpatient follow up with Dr. Arnold in the next 2-3 weeks to discuss surgical management. recommend Aleve 250mg oral daily for 'anti-inflammatory" daily fro 1 week, hold when you see rectal bleeding, and report to your PCP.. - you need to follow up with your primary care physician in 1 week, - take medication as instructed, never overdose or any misuse, or take with alcohol, because misuse of medicine may cause organ damage or , call your primary care physician if have questions of medicaitons. - call your primary care physician OR go to local emergency room if has any fever/chill, chest pain, shortness of breathing, nausea/vomiting/abdominal pain , facial droop/slurry speech/local weakness, or if has any questions. - fall precaution - diet as instructed - you need to follow up with your subspecialist - you should understand that it is important to follow up the above instruction , and "not following the above instruction" may cause delayed or missed care of your medical conditions which may cause permanent organ damage and even . Total Time Spent: Greater than 30 minutes This includes examination of the patient, discharge planning, medication reconciliation, and communication with other providers. Discharge Instructions Please refer to the electronic Patient Visit Report (Discharge Instructions) for additional information. Additional Copies To Roma Tran CRNP; Remi Thompson II., DO
== END 2017-07-05 12:00 | disposition home or self-care (01) | DRG 728 ==
LOC: C.EDB 16:47 → C.3E 07-02 01:06 → ENRESERV 07-02 01:16
PROVIDERS: ADMIT Internal Medicine; ATTEND Hospitalist
DX: N43.1 Infected hydrocele (principal); N45.1 Epididymitis; N41.9 Inflammatory disease of prostate, unspecified; I10 Essential (primary) hypertension; E78.5 Hyperlipidemia, unspecified; N40.0 Benign prostatic hyperplasia without lower urinary tract symptoms; I25.10 Atherosclerotic heart disease of native coronary artery without angina pectoris; K59.00 Constipation, unspecified; F17.200 Nicotine dependence, unspecified, uncomplicated; Z79.82 Long term (current) use of aspirin; Z79.899 Other long term (current) drug therapy; Z88.5 Allergy status to narcotic agent

== ENCOUNTER → 2017-07-12 | Outpatient (CLI) | payer BC ==
[~2017-07-12] MED LIST changes: +ALFU10TA2 PO; -CIPR-255 PO; +CLC100 PO; +DOCU100C31 PO; +IBUP-1050 PO; -METR-163 PO; +MRLP17X PO; +NAPR1TAB9 PO; +POLY335019 PO; +SULF-302 PO; +SULF800T23 PO; +URX/10 PO
--- NOTE | 2017-07-12 12:41 | DIAGNOSTIC IMAGING REPORT ---
CHEST 2 VIEWS ROUTINE CLINICAL HISTORY: 61 years-old Male presenting with N43.3 Hydrocele, [id number], preoperative assessment. TECHNIQUE: PA and lateral views of the chest were obtained. COMPARISON: None. FINDINGS: Left subclavian implanted cardiac defibrillator with leads to the right atrium and right ventricular apex. Atherosclerosis of aortic arch. Cardiac silhouette normal in size. Lungs and pleural spaces clear. Osseous structures normal. Upper abdomen normal. IMPRESSION: 1. No acute cardiopulmonary disease. Electronically signed by: Fuad Levy M.D. 07/12/2017 12:40 PM Dictated Date/Time: 07/12/2017 12:39 PM
[2017-07-12 13:23] LABS: BASO ABS # 0.05 K/uL (0-0.2); EOS % 2.6 %; EOS ABS # 0.13 K/uL (0-0.5); HEMOGLOBIN 14.4 g/dL (14.0-18.0); IG# 0.04 K/uL (0.00-0.02); LYMPH % 38.3 %; MEAN CELL VOLUME 92.8 fL (80-100); MEAN CORPUSCULAR HEMOGLOBIN 32.6 pg (25-34); MEAN CORPUSCULAR HGB CONC 35.1 g/dl (32-36); MEAN PLATELET VOLUME 10.5 fL (7.4-10.4); MONO % 10.5 %; MONO ABS # 0.52 K/uL (0.11-0.59); NEUT % 46.8 %; NEUT ABS # 2.32 K/uL (1.4-6.5); PLATELET COUNT 271 K/uL (130-400); RED CELL DISTRIBUTION WIDTH CV 12.9 % (11.5-14.5); RED CELL DISTRIBUTION WIDTH SD 43.9 fL (36.4-46.3); WHITE BLOOD COUNT 4.96 K/uL (4.8-10.8)
[2017-07-12 13:49] LABS: BLOOD UREA NITROGEN 17 mg/dl (7-18); CARBON DIOXIDE 26 mmol/L (21-32); CREATININE 1.59 mg/dl (0.60-1.40); GLUCOSE 135 mg/dl (70-99); POTASSIUM 4.5 mmol/L (3.5-5.1); SODIUM 135 mmol/L (136-145)
[2017-07-12 13:50] LABS: ALBUMIN 3.8 gm/dl (3.4-5.0); ALT/SGPT 34 U/L (12-78); AST/SGOT 16 U/L (15-37); CALCIUM 8.9 mg/dl (8.5-10.1)
[2017-07-12 13:53] LABS: ALKALINE PHOSPHATASE 74 U/L (45-117); TOTAL PROTEIN 6.8 gm/dl (6.4-8.2)
== END | disposition home or self-care (01) ==
LOC: C.RAD 12:11
PROVIDERS: ATTEND Urology
DX: N43.3 Hydrocele, unspecified (principal)

== ENCOUNTER 2017-07-23 09:21 | Day surgery (SDC) | payer BC ==
[2017-07-18 11:36] VITALS: Ht 177.8 cm; Wt 77.7 kg
[~2017-07-23] VITALS: Ht 177.8 cm; Wt 77.7 kg
[~2017-07-23 09:21] MED LIST changes: +CEFAZOLIN 2000MG IV PUSH 15 ML IV SCH; -CLC100 PO; +LACTATED RINGER'S 1000ML 1,000 ML IV SCH; -MRLP17X PO; -OXYC7.5T66 PO; -SULF-302 PO; -TAMS0.4C38 PO; -URX/10 PO
[2017-07-23 09:46] VITALS: BP 104/64; PULSE 65; TEMP 36.8; O2SAT 96
--- NOTE | 2017-07-23 11:55 | History & Physical Bridge Note ---
H&P Re-Evaluation Bridge Note: I have examined the patient, reviewed the History & Physical and in the interval since the performance of the History & Physical I have noted the following changes of clinical significance: No changes noted
[2017-07-23] MEDS ORDERED: BACITRACIN OINT 15 GM TUBE ONE (12:09)
[2017-07-23] MEDS ORDERED: BUPIVACAINE 0.5 % 5 MG/1 ML MPF 30ML VIAL ONE (12:09)
[2017-07-23] MEDS ORDERED: ETOMIDATE 2 MG/ML 20 ML VIAL IV ONE (12:24)
[2017-07-23] MEDS ORDERED: LIDOCAINE HCL 2% 2 ML VIAL (20MG/ML) ONE (12:24)
[2017-07-23] MEDS ORDERED: FENTANYL CITRATE INJ 50 MCG/1 ML 2 ML VIAL ONE ×2 (12:24→13:57)
[2017-07-23] MEDS ORDERED: PHENYLEPHRINE 100MCG/ML 5ML SYR ONE (13:15)
[2017-07-23] MEDS ORDERED: PROPOFOL IV EMULSION 10 MG/ML 20 ML VIAL ONE (13:16)
--- NOTE | 2017-07-23 13:47 | [facility] Operative Report ---
Operative Report Operative Date July 23, 2017. Pre-Operative Diagnosis 1. Left Hydrocele 2. Benign Prostatic Hyperplasia with Urinary Obstruction Post-Operative Diagnosis Same as pre-operative Procedure(s) Performed Left Hydrocelectomy, Flexible Cystoscopy Surgeon Dr. Salinas Arnold Briquette Maker Surgeon(s) none Estimated Blood Loss 15mL Specimens Permanent: A. Left Hydrocele Sac Drains [place] Anesthesia Type General Complication(s) none Disposition Recovery Room / PACU Indications Left hydrocele; voiding dysfunction Description of Procedure Patient was identified in the preoperative holding area, appropriate informed consents reviewed and completed and he was transported to the operating suite. Upon arrival he received appropriate preoperative antibiotics in the form of Ancef. Adequate general anesthesia was achieved and he was placed in supine position where he was sterilely prepped and draped in standard fashion. Midline incision was made in the roll raphae of the scrotum for approximately 5 cm length. Dissected carefully through dartos fascia until I was able to deliver the testicle including the tunica vaginalis and hydrocele through the incision. I then skeletonized the tunica vaginalis further before incising the tunica vaginalis and draining several 100 cc of clear yellow appearing fluid. We then excised the redundant hydrocele sac after opening and exploring it. The edges were oversewn with a running 3-0 Vicryl suture. We ensured excellent hemostasis. A drain was placed in the dependent portion of the left hemiscrotum. Closure was accomplished in 2 layers, with the first layer being 2 -0 Vicryl to reapproximate dartos fascia followed by 3-0 chromic suture in vertical mattress fashion to reapproximate the skin. The drain was sutured in place utilizing a 2-0 nylon. I then performed a flexible cystoscopy which revealed moderate prostate obstruction - all lateral lobe, no significant intravesical median lobe. Bladder mucosa appeared healthy with ureteral orifices in orthotopic position. There were no strictures or other abnormalities. Case was subsequently concluded and the patient was taken to the PACU in stable condition. This concludes his operative report dictating physician Salinas Arnold I attest to the content of the Intraoperative Record and any orders documented therein. Any exceptions are noted below.
[2017-07-23] MEDS ORDERED: HYDR-5688 PO ×2 (14:00)
[2017-07-23] MEDS ORDERED: ATROPINE SULFATE 0.1 MG/ML 5ML SYR IV PRN (14:00)
[2017-07-23] MEDS ORDERED: ONDANSETRON INJ 2 MG/ML 2 ML VIAL IV PRN (14:00)
[2017-07-23] MEDS ORDERED: NALOXONE HCL 0.4 MG/1 ML VIAL/CARP IV PRN (14:00)
[2017-07-23] MEDS ORDERED: LABETALOL HCL IV 5 MG/ML 20ML IV PRN (14:00)
[2017-07-23] MEDS ORDERED: FENTANYL CITRATE INJ 50 MCG/1 ML 2 ML VIAL IV PRN (14:00)
[2017-07-23] MEDS ORDERED: EpHEDrine SULFATE INJ 50 MG/ML AMP IV PRN (14:00)
[2017-07-23] MEDS ORDERED: FLUMAZENIL 0.1 MG/1 ML 10 ML VIAL IV PRN (14:00)
[2017-07-23] MEDS ORDERED: PROMETHAZINE HCL INJ 12.5 MG in SODIUM CHLORIDE 0.9% 50ML 50 ML IV PRN (14:00)
[2017-07-23] MEDS ORDERED: SODIUM CHLORIDE 0.9% 1000ML 1,000 ML IV SCH (14:02)
--- NOTE | 2017-07-23 14:02 | Discharge Instructions ---
Discharge Instructions Date of Service July 23, 2017. Admission Reason for Admission: Left Hydrocele,Benign Prostatic Hyperplasia W/Urin Discharge Discharge Diagnosis / Problem: hydrocele/BPH Discharge Goals Goal(s): Decrease discomfort, Improve function, Increase independence, Improve disease control Activity Recommendations Activity Limitations: per Instructions/Follow-up section Lifting Limitations: no more than 25 pounds, until after follow-up appointment Exercise/Sports Limitations: until after follow-up appointment May Resume Sexual Activity: when tolerated Shower/Bathe: tomorrow (shower 24hrs after drain is removed), may shower/bathe in 3 days Driving or Machine Use: avoid driving until off of pain meds and you feel comfortable that you can safely control your vehicle . Instructions / Follow-Up Instructions / Follow-Up Please come to Dr. Arnold's office to have your drain removed Current Hospital Diet Patient's current hospital diet: Discharge Diet Recommended Diet: Regular Diet Procedures Procedures Performed: Left Hydrocelectomy, Flexible Cystoscopy Pending Studies Studies pending at discharge: no Laboratory Results Lipid Panel Test 06/19/17 15:07 Range/Units Triglycerides Level 114 0-150 mg/dl Cholesterol Level 224 H 0-200 mg/dl HDL Cholesterol 51 mg/dl Cholesterol/HDL Ratio 4.4 LDL Cholesterol, Calculated 150 mg/dl Medical Emergencies . Who to Call and When: Medical Emergencies: If at any time you feel your situation is an emergency, please call 911 immediately. . Non-Emergent Contact Non-Emergency issues call your: Urologist Call Non-Emergent contact if: you have a fever, temperature is above 101.5, your pain is not controlled, your pain is worsening . . "Provider Documentation" section prepared by Tim Paeg. . [place] Drug Monitoring Program Search Results: patient reviewed within database, no issues identified
[2017-07-23] MEDS ORDERED: OXYCODONE/ACETAMINOPHEN 5-325 TAB PO PRN ×2 (14:15)
--- NOTE | 2017-07-23 14:33 | Anesthesiology Progress Note ---
Anesthesia Post Op Note Date & Time July 23, 2017 at 14:32 Vital Signs Pain Intensity: 5 Vital Signs Past 12 Hours Date Time Temp Pulse Resp B/P (MAP) Pulse Ox O2 Delivery O2 Flow Rate FiO2 07/23/17 14:25 36.3 95 Room Air 07/23/17 14:22 75 19 98 07/23/17 14:22 74 19 07/23/17 14:21 106/61 07/23/17 14:17 72 12 07/23/17 14:17 71 12 96 07/23/17 14:16 95/62 07/23/17 14:12 75 22 96 07/23/17 14:12 74 22 07/23/17 14:11 73 17 07/23/17 14:11 72 17 110/71 96 07/23/17 14:06 69 12 07/23/17 14:06 69 12 105/70 100 07/23/17 14:05 71 20 07/23/17 14:05 71 20 100 07/23/17 14:01 111/66 07/23/17 14:00 70 13 07/23/17 14:00 70 13 100 07/23/17 13:56 115/76 07/23/17 13:55 75 19 100 07/23/17 13:55 75 19 07/23/17 13:51 115/83 07/23/17 13:50 36.6 84 18 115/83 100 Oxymask 10 07/23/17 09:46 36.8 65 16 104/64 (77) 96 Room Air Notes Mental Status: alert / awake / arousable, participated in evaluation Pt Amnestic to Procedure: Yes Nausea / Vomiting: adequately controlled Pain: adequately controlled Airway Patency, RR, SpO2: stable & adequate BP & HR: stable & adequate Hydration State: stable & adequate Anesthetic Complications: no major complications apparent
[2017-07-23 14:35] VITALS: BP 101/64; PULSE 70; TEMP 36.7; O2SAT 97
[2017-07-23 15:05] VITALS: BP 100/66; PULSE 73; O2SAT 97
[2017-07-23 15:35] VITALS: BP 103/61; PULSE 73; TEMP 36.2; O2SAT 98
== END 2017-07-23 15:40 | disposition home or self-care (01) ==
LOC: C.ACU 09:21
PROVIDERS: ATTEND Urology
DX: N43.3 Hydrocele, unspecified (principal); N40.1 Benign prostatic hyperplasia with lower urinary tract symptoms; N13.8 Other obstructive and reflux uropathy; N18.9 Chronic kidney disease, unspecified; J44.9 Chronic obstructive pulmonary disease, unspecified; F17.200 Nicotine dependence, unspecified, uncomplicated; I25.2 Old myocardial infarction; I10 Essential (primary) hypertension; Z88.8 Allergy status to other drugs, medicaments and biological substances; E78.00 Pure hypercholesterolemia, unspecified; Z95.810 Presence of automatic (implantable) cardiac defibrillator; I25.10 Atherosclerotic heart disease of native coronary artery without angina pectoris; Z79.82 Long term (current) use of aspirin; Z79.899 Other long term (current) drug therapy

== ENCOUNTER 2017-07-25 19:09 | Emergency (ER) | payer BC ==
[~2017-07-25] VITALS: Ht 177.8 cm; Wt 78.6 kg
[~2017-07-25 19:09] MED LIST changes: -CEFAZOLIN 2000MG IV PUSH 15 ML IV SCH; +HYDR-5688 PO; -LACTATED RINGER'S 1000ML 1,000 ML IV SCH
[2017-07-25 19:17] VITALS: TEMP 36.7; Ht 177.8 cm; Wt 78.6 kg
--- NOTE | 2017-07-25 20:19 | EMERGENCY ROOM VISIT NOTE ---
History Report prepared by Bryan: Kirt Levine Under the Supervision of: Dr. Mukund Green M.D. First contact with patient: 19:33 Chief Complaint: SWELLING TO EXTREMITY Stated Complaint: LEFT HAND SWELLING, RED LINE GOING UP ARM, S/P ADILENE History of Present Illness The patient is a 61 year old male who presents to the Emergency Room with complaints of constant swelling to the left upper extremity beginning yesterday. The patient states he had surgery on his left testicle two days ago. He reports it was performed by Dr. Arnold. The patient notes he went home and realized his left hand was swelling yesterday. He states he thought it was from his IV. The patient reports he developed a white bump in his left inner elbow this morning. He notes he thought it was again from his IV site. The patient states he started to worry when he developed a red streak up his left forearm this evening. He denies shortness of breath and a fever. Source of History: patient Onset: yesterday Position: other (Left upper extremity) Quality: other (swelling) Timing: constant Associated Symptoms: No fevers, No SOB Note: Associated symptoms: white bump at the left elbow, red streak up the left forearm. Review of Systems See HPI for pertinent positives & negatives. A total of 10 systems reviewed and were otherwise negative. Past Medical & Surgical Medical Problems: (1) Cellulitis, scrotum (2) Heart attack (3) Heart disease (4) Hydrocele in adult Surgical Problems: (1) Hx of vasectomy Family History FHx: cancer FHx: heart disease Social History Smoking Status: Current Every Day Smoker Alcohol Use: none Drug Use: none Marital Status: Occupation Status: unemployed Current/Historical Medications Scheduled Alfuzosin Hcl (Uroxatral), 10 MG PO QAM Aspirin (Aspirin Ec), 81 MG PO QAM Coenzyme Q10 (Ubidecarenone) (Co Q 10), 100 MG PO QPM Docusate Sodium (Docusate Sodium), 1 CAP PO QPM Fish Oil ([place]-3), 2,000 MG PO QPM Multiple Vitamin (Multivitamin), 1 TAB PO QPM Naproxen (Aleve), 220 MG PO QPM Pindolol (Visken), 2.5 MG PO BID Sulfamethoxazole-Trimethoprim (Bactrim Ds 800MG/160MG), 1 TAB PO BID Scheduled PRN Nitroglycerin (Nitrostat), 0.4 MG UT UD PRN for Chest Pain Polyethylene Glycol 3350 (Miralax), 17 GM PO DAILY PRN for PRN Propranolol (Inderal), 10 MG PO UD PRN for Tachycardia Allergies Coded Allergies: Statins (Verified Allergy, Intermediate, MUSCLE ACHES, CHEST PAINS, 07/25/17 ) Dairy (Verified Adverse Reaction, Intermediate, EXCESS PHLEGM WITH CHEESE, ICE CREAM, 07/25/17) Morphine (Verified Adverse Reaction, Intermediate, DELIRIUM,CONFUSION, 07/25) Propofol (Verified Adverse Reaction, Intermediate, VERTIGO, NAUSEA, VOMITING-EXTENDED PERIOD MONTHS TO GET BACK, 07/25/17) Physical Exam Vital Signs Date Time Temp Pulse Resp B/P (MAP) Pulse Ox O2 Delivery O2 Flow Rate FiO2 07/25/17 21:12 67 16 108/67 96 Room Air 07/25/17 19:17 36.7 79 18 104/70 95 Room Air Physical Exam GENERAL: Patient is in no acute distress. HEENT: No acute trauma, normocephalic atraumatic, mucous membranes moist, no nasal congestion, no scleral icterus. NECK: No stridor, no adenopathy, no meningismus, trachea is midline. LUNGS: Clear to auscultation bilaterally, no wheeze, no rhonchi, breath sounds equal. HEART: Without murmurs gallops or rubs, regular rate and rhythm. ABDOMEN: Soft, nontender, bowel sounds positive, no hernias, no peritonitis. EXTREMITIES: Mild amount of swelling to the dorsum of the left hand and slightly to the left forearm when compared to right side. Erythematous streak extending from the left dorsal thumb up to the left antecubital fossa. Palpable cord was felt, neurovascularly intact distally in the left upper extremity. NEUROLOGIC: Oriented x 3, no acute motor or sensory deficits, no focal weakness. SKIN: No rash, no jaundice, no diaphoresis. Medical Decision & Procedures ER Provider Diagnostic Interpretation: Radiology results as stated below per my review and radiologist interpretation: L VENOUS DOPPLER UPR EXT UNIL CLINICAL HISTORY: 61 years-old Male presenting with swelling, poss dvt vs superficial. TECHNIQUE: Real-time grayscale and color and spectral Doppler ultrasound imaging of the veins of the left upper extremity was performed. Compression and augmentation were also utilized. COMPARISON: None. FINDINGS: Left: Internal jugular vein: Patent. Subclavian vein: Patent. Axillary vein: Patent. Brachial vein: Patent. Basilic vein (superficial): Patent. Cephalic vein (superficial): Occlusive filling defect consistent with thrombus extending from the previous to the antecubital fossa. Radial vein: Patent. Ulnar vein: Patent. Other: None. IMPRESSION: 1. No evidence of deep venous thrombosis. 2. Superficial venous thrombosis in the forearm portion of the cephalic vein. Electronically signed by: Fuad Levy M.D. 07/25/2017 8:53 PM Dictated Date/Time: 07/25/2017 8:51 PM ED Course 1934: The patient was evaluated in room C10. A complete history and physical exam was performed. 2158: Reevaluated the patient. Discussed results and discharge instructions: he verbalized understanding and agreement. The patient is ready for discharge. Medical Decision The patient is a 61 year old female who presents to the ED with complaints of constant swelling to the left upper extremity . Differential diagnoses considered include superficial thrombophlebitis, cellulitis, neurovascular compromise, arterial injury, trauma, medication reaction. Patient presents with some redness and swelling to the left forearm. A palpable cord was seen. This is the arm which an IV had been placed for his surgery a few days ago. Patient was not short of breath, he was not febrile or toxic. Ultrasound of the left upper extremity does not show DVT. A superficial thrombophlebitis to the forearm was seen. Patient was reassured. He is being discharged with nonsteroidals, warm compresses/heat. He will follow with his doctor next week and return here if worsening. Medication Reconcilliation Current Medication List: was personally reviewed by me Blood Pressure Screening Patient's blood pressure: Normal blood pressure Blood pressure disposition: Did not require urgent referral Impression Primary Impression: Superficial thrombophlebitis Scribe Attestation The scribe's documentation has been prepared under my direction and personally reviewed by me in its entirety. I confirm that the note above accurately reflects all work, treatment, procedures, and medical decision making performed by me. Departure Information Dispostion Home / Self-Care Referrals Roma Tran CRNP (PCP) Forms HOME CARE DOCUMENTATION FORM, IMPORTANT VISIT INFORMATION, WORK / SCHOOL INSTRUCTIONS Patient Instructions My [facility] Additional Instructions aleve 2x per day for 5-7 days warm compresses or heating pad to the area for 40 minutes at a time every few hours follow with the barber md next week return for worsening symptoms or fever no deep clot today by ultrasound
--- NOTE | 2017-07-25 20:55 | DIAGNOSTIC IMAGING REPORT ---
L VENOUS DOPPLER UPR EXT UNIL CLINICAL HISTORY: 61 years-old Male presenting with swelling, poss dvt vs superficial. TECHNIQUE: Real-time grayscale and color and spectral Doppler ultrasound imaging of the veins of the left upper extremity was performed. Compression and augmentation were also utilized. COMPARISON: None. FINDINGS: Left: Internal jugular vein: Patent. Subclavian vein: Patent. Axillary vein: Patent. Brachial vein: Patent. Basilic vein (superficial): Patent. Cephalic vein (superficial): Occlusive filling defect consistent with thrombus extending from the previous to the antecubital fossa. Radial vein: Patent. Ulnar vein: Patent. Other: None. IMPRESSION: 1. No evidence of deep venous thrombosis. 2. Superficial venous thrombosis in the forearm portion of the cephalic vein. Electronically signed by: Fuad Levy M.D. 07/25/2017 8:53 PM Dictated Date/Time: 07/25/2017 8:51 PM
[2017-07-25 21:12] VITALS: BP 108/67; PULSE 67; O2SAT 96
== END 2017-07-25 21:12 | disposition home or self-care (01) ==
LOC: C.EDB 19:11 → C.EDC 21:12
DX: I80.9 Phlebitis and thrombophlebitis of unspecified site (principal); I25.2 Old myocardial infarction; I51.9 Heart disease, unspecified; F17.200 Nicotine dependence, unspecified, uncomplicated; Z88.8 Allergy status to other drugs, medicaments and biological substances; Z91.011 Allergy to milk products; Z88.5 Allergy status to narcotic agent

== ENCOUNTER → 2017-07-30 | Outpatient (CLI) | payer BC ==
[~2017-07-30] MED LIST changes: -HYDR-5688 PO; -IBUP-1050 PO; -MISCCHW PO
[2017-07-30 13:28] LABS: BASO % 1.1 %; BASO ABS # 0.05 K/uL (0-0.2); EOS % 4.6 %; EOS ABS # 0.21 K/uL (0-0.5); HEMATOCRIT 38.8 % (42-52); HEMOGLOBIN 13.1 g/dL (14.0-18.0); IG# 0.02 K/uL (0.00-0.02); LYMPH % 26.7 %; LYMPH ABS # 1.21 K/uL (1.2-3.4); MEAN CELL VOLUME 93.9 fL (80-100); MEAN CORPUSCULAR HEMOGLOBIN 31.7 pg (25-34); MEAN CORPUSCULAR HGB CONC 33.8 g/dl (32-36); MEAN PLATELET VOLUME 10.4 fL (7.4-10.4); MONO % 10.6 %; MONO ABS # 0.48 K/uL (0.11-0.59); NEUT % 56.6 %; NEUT ABS # 2.57 K/uL (1.4-6.5); PLATELET COUNT 188 K/uL (130-400); RED CELL DISTRIBUTION WIDTH CV 13.3 % (11.5-14.5); RED CELL DISTRIBUTION WIDTH SD 45.8 fL (36.4-46.3); WHITE BLOOD COUNT 4.54 K/uL (4.8-10.8)
[2017-07-30 14:06] LABS: BLOOD UREA NITROGEN 13 mg/dl (7-18); CALCIUM 8.6 mg/dl (8.5-10.1); CARBON DIOXIDE 27 mmol/L (21-32); CREATININE 1.31 mg/dl (0.60-1.40); GLUCOSE 93 mg/dl (70-99); POTASSIUM 4.7 mmol/L (3.5-5.1); SODIUM 136 mmol/L (136-145)
== END | disposition home or self-care (01) ==
LOC: C.LAB1850 12:24
PROVIDERS: ATTEND Nurse Practitioner Adult Health
DX: N50.89 Other specified disorders of the male genital organs (principal); I82.890 Acute embolism and thrombosis of other specified veins; R79.89 Other specified abnormal findings of blood chemistry